=== PATIENT | female | born 1965 | race Two or more races ===

== ENCOUNTER 2023-06-05 14:52 | Outpatient (REF) | payer OTHER, SELFPAY ==
[2023-06-05 18:17] LABS: Vitamin B12 323 pg/mL (200-900)
[2023-06-10 13:18] LABS: Vitamin B6 7.9 ng/mL (2.1-21.7)
== END 2023-06-05 14:53 | disposition home or self-care (01) ==
LOC: HO.CHCLDS 14:52
PROVIDERS: Visit Provider Internal Medicine
DX: L29.9 Pruritus, unspecified (principal)
CPT/HCPCS: 36415; 82607; 84207

== ENCOUNTER → 2023-11-01 12:47 | Outpatient (BNVA) | payer OTHER, SELFPAY | PROVIDERS: Visit Provider Physician Assistant Medical | DX: M54.2 Cervicalgia (principal); S39.012A Strain of muscle, fascia and tendon of lower back, initial encounter; Y04.2XXA Assault by strike against or bumped into by another person, initial encounter | CPT/HCPCS: 72052; 99202 ==

== ENCOUNTER 2023-11-02 09:52 | Outpatient (REF) | payer OTHER, SELFPAY ==
[2023-11-02 15:43] LABS: Alanine Aminotransferase 11 U/L (0-31); Albumin Level 3.9 g/dL (3.5-5.0); Alkaline Phosphatase 92 U/L (39-117); Anion Gap 14 (12-20); Aspartate Amino Transferase 14 U/L (5-31); Bilirubin Direct 0.2 mg/dL (0.0-0.5); Bilirubin Total 0.5 mg/dL (0.0-1.0); Blood Urea Nitrogen 14 mg/dL (9-16); Calcium 8.9 mg/dL (8.4-10.2); Carbon Dioxide 26 mmol/L (22-29); Chloride 104 mmol/L (96-108); Cholesterol 165 mg/dL (<200); Estimated Glomerular Filt Rate > 60; Glucose Random 103 mg/dL (60-115); HDL Cholesterol 60 mg/dL (>40); LDL Cholesterol Calculated 90 mg/dL (<100); Sodium 140 mmol/L (135-145); Total Protein 7.4 g/dL (6.5-8.0); Triglycerides 77 mg/dL (<150)
[2023-11-02 15:47] LABS: Thyroid Stimulating Hormone 1.58 uIU/mL (0.32-4.0)
== END 2023-11-02 09:53 | disposition home or self-care (01) ==
LOC: HO.CHCLDS 09:52
PROVIDERS: Visit Provider Student in an Organized Health Care Education/Training Program
DX: E66.9 Obesity, unspecified (principal)
CPT/HCPCS: 36415; 80048; 80061; 80076; 84443

== ENCOUNTER → 2023-11-03 12:50 | Outpatient (BNVA) | payer OTHER, SELFPAY | PROVIDERS: Visit Provider Physician Assistant | DX: M54.2 Cervicalgia (principal); S39.012A Strain of muscle, fascia and tendon of lower back, initial encounter; Y04.2XXA Assault by strike against or bumped into by another person, initial encounter | CPT/HCPCS: 99213 ==

== ENCOUNTER → 2024-07-24 11:22 | Outpatient (BNVA) | payer OTHER, SELFPAY | PROVIDERS: PCP Student in an Organized Health Care Education/Training Program; Visit Provider Physician Assistant | DX: S80.211A Abrasion, right knee, initial encounter (principal); W01.0XXA Fall on same level from slipping, tripping and stumbling without subsequent striking against object, initial encounter | CPT/HCPCS: 73564; 99204 ==

== ENCOUNTER → 2024-07-29 15:04 | Outpatient (BNVA) | payer OTHER, SELFPAY | PROVIDERS: PCP Student in an Organized Health Care Education/Training Program; Visit Provider Physician Assistant Medical | DX: S80.211A Abrasion, right knee, initial encounter (principal); W01.0XXA Fall on same level from slipping, tripping and stumbling without subsequent striking against object, initial encounter | CPT/HCPCS: 99213 ==

== ENCOUNTER 2024-08-22 14:50 | Outpatient (AMB) | payer BC, SELFPAY ==
--- NOTE | 2024-08-22 15:03 | A.OFFVIS_ITS ---
Intake Visit Reasons: mixed/stress incontinence Intake Note: New Patient presents for initial visit for incontinence Urology Medications: oxybutynin Blood Thinner: none PVR: 51ml's Freelance Recruiter Required: No Accompanied by: Self / Same As Patient Allergies No Known Allergies Allergy (Verified 08/22/24 15:15) PFSH Surgical History Hx of hysterectomy Hx of gastric bypass Family History Family/Other Family history- stomach cancer Office Procedures Post Void Residual Post Residual Void Post Void Residual (PVR): 51 [id number] Void Residual by ultrasound Results AMB Urinalysis, Automated UA Leukoctes 15 Osei/uL Last Edit by [facility] on 08/22/24 15:17 UA Nitrite Last Edit by [facility] on 08/22/24 15:17 UA Urobilinogen 0.2 mg/dL Last Edit by [facility] on 08/22/24 15:17 UA Protein 0 mg/dL Last Edit by [facility] on 08/22/24 15:17 UA pH 6.0 Last Edit by [facility] on 08/22/24 15:17 UA Blood 0 Gordon/uL Last Edit by [facility] on 08/22/24 15:17 UA Specific [place] 1.030 Last Edit by [facility] on 08/22/24 15:17 UA Ketone Last Edit by [facility] on 08/22/24 15:17 UA Bilirubin 0 mg/dL Last Edit by [facility] on 08/22/24 15:17 UA Glucose 0 mg/dL Last Edit by [facility] on 08/22/24 15:17 Assessment & Plan Assessment & Plan Orders: Orders AMB Urinalysis Automated Today Z13.9 - Encounter for screening, unspecified AMB Post Void Residual by ultrasound Today N39.41 - Urge incontinence Coding CPT Codes Post Residual Void - PVR CPT Code: [id number] Void Residual by ultrasound ([id number])
== END 2024-08-22 15:26 | disposition home or self-care (01) ==
PROVIDERS: PCP Student in an Organized Health Care Education/Training Program; Visit Provider Nurse Practitioner Family
DX: Z13.9 Encounter for screening, unspecified (principal)

== ENCOUNTER → 2024-08-22 14:50 | Outpatient (BNVA) | payer BC, SELFPAY | PROVIDERS: PCP Student in an Organized Health Care Education/Training Program; Visit Provider Nurse Practitioner Family | DX: N39.46 Mixed incontinence (principal); N30.10 Interstitial cystitis (chronic) without hematuria; N32.81 Overactive bladder | CPT/HCPCS: 51798; 81003 ==

== ENCOUNTER 2024-11-06 15:32 | Outpatient (REF) | payer BC, SELFPAY ==
--- NOTE | ~2024-11-06 | US_ITS ---
EXAMINATION: US RETROPERITONEUM HISTORY: N39.46 - Mixed incontinence TECHNIQUE: Real-time grayscale ultrasound imaging of the kidneys was performed and images were reviewed. COMPARISON: There are no prior studies for comparison. FINDINGS: Right kidney: The right kidney measures 11.1 x 4.4 x 4.0 cm. Renal parenchymal echotexture and thickness are normal. There are no masses. There is no hydronephrosis or renal calculi. Left Kidney: The left kidney measures 11.9 x 5.3 x 5.3 cm. Renal parenchymal echotexture and thickness are normal. There are no masses. There is no hydronephrosis or renal calculi. The urinary bladder is unremarkable. Bilateral ureteral jets are identified. Before voiding, the urinary bladder measured 8.1 x 5.5 x 8.7 cm, for an estimated volume of 202 mL. After voiding, the urinary bladder measured 3.4 x 2.2 x 5.3 cm, for an estimated volume of 21 mL. US/US retroperitoneal comp IMPRESSION: Unremarkable renal ultrasound. Post void bladder residual of 21 mL. Electronically signed by: Helio Eagle MD 11/07/2024 07:00 AM EDT
--- OUTSIDE RECORDS SUMMARY | 2024-11-06 18:38 | XMS_ITS | Clinical Summary ---
Author Organization [employer] Address [address] [facility] [address]t [place] [address] Care Team Providers Care Pet Care Assistant Name Role Phone Karen Burden MD Primary Care Provider [phone] Allergies No known active allergies Medications famotidine (Pepcid) 20 MG tablet Take 20 mg by mouth. 02/15/2024 Active naproxen (Naprosyn) 500 MG tablet TAKE 1 TABLET BY MOUTH TWICE A DAY NEEDED BACK PAIN 11/01/2023 Active oxybutynin XL (Ditropan XL) 5 MG 24 hr tablet Take 1 tablet (5 mg) by mouth Once per day. Do not crush, chew, or split. 30 tablet 11 06/19/2024 5 Active PARoxetine (Paxil) 10 MG tablet Take 1 tablet (10 mg) by mouth in the morning. 30 tablet 11 06/19/2024 Active Active Problems Problem Noted Date Diagnosed Date Anemia 06/19/2024 Depression 06/19/2024 Epidermoid cyst 06/19/2024 Family history of neoplasm of breast 06/19/2024 GERD (gastroesophageal reflux disease) 4 Obesity 06/19/2024 Breast microcalcifications 11/02/2023 History of hysterectomy for benign disease 05/15 Immunizations Name Administration Dates Next Due INFLUENZA VACCINE QUADRIVALE NT RECOMBINANT PRESERVATIVE FREE RIV4 09/08/2020 Influenza injectable quadriv alent preservative free 07/12/2023,05/13/2022,06/25/2018 Influenza, seasonal, injecta ble, preservative free 06/19/2024,05/20/2016 Pfizer Covid-19 Vaccine 12+ 06/19/2024 Pneumococcal Polysaccharide PPSV23 01/20/2018 Tdap 01/09/2018 Zoster, Recombinant 05/23/2023 Social History Tobacco Use Types Packs/Day Years Used Date Smoking Tobacco: Never Passive Smoke Exposure: Never Smokeless Tobacco: Never Tobacco Cessation:Counseling Given: Not Answered Alcohol Use Standard Drinks/Week Comments Never 0 (1 standard drink = 0.6 oz pur e alcohol) Depression Answer Date Recorded Patient Health Questionnaire-9 Score 12 06/19/2024 Patient Health Questionnaire-9 Score 12 06/19/2024 Last PHQ-9: Questionnaire Data Not on file 1 08/19/2023 Housing Stability Answer Date Recorded What is your housing situation today? I have alex ram 06/05/[address] you li ve. Do you have problems with any of the following? None of the above 06/05/2023 Food Insecurity Answer Date Recorded Within the past 12 months, y ou worried that your food would run out before you got money to buy more: Never True 06/05/2023 Within the past 12 months,th e food you bought just didn't last and you didn't have enough money to get more: Never True Transportation Answer Date Recorded In the past 12 months, has l ack of transportation kept you from medical appts, meetings, work or from getting things needed for daily living? No 06/05/2023 Utilities Answer Date Recorded In the past 12 months, has t he electric, gas, oil or water company threatened to shut off services in your home? No 06/05/2023 Depression Answer Date Recorded Patient Health Questionnaire-2 Score 3 06/19/2024 Comments No Sex and Gender Information Value Date Recorded Sex Assigned at Female 06/13/2022 10:27 AM EDT Legal Sex Female 10:27 AM EDT Gender Identity Female 06/13/2022 10:27 AM EDT Sexual Orientation Straight 02/01/2023 11 :32 AM EDT Last Filed Vital Signs Vital Sign Reading Time Taken Comments Blood Pressure 119/66 06/19/2024 8:44 AM EST Pulse 82 06/19/2024 8:44 AM EST Temperature 36.3 ??C (97.3 ??F) 06/19/2024 8:44 AM ES T Respiratory Rate 14 06/19/2024 8:44 AM EST Oxygen Saturation 97% 06/19/2024 8:44 AM EST Inhaled Oxygen Concentration - - Weight 88 kg (194 lb) 06/19/2024 8:44 AM EST Height 159 cm (5' 2.6 ) 06/19/2024 8:44 AM EST Body Mass Index 34.81 06/19/2024 8:44 AM EST Plan of Treatment Health Maintenance Due Date Last Done Comments CT Colonography 1966 Colonoscopy 1966 FIT 1966 FOBT 1965 HIV Screening 1965 Sigmoidoscopy 1966 Alcohol/Substance Use Screening 1978 Hepatitis C Screening 1984 Hepatitis B Vaccines (1 of 3 - 19+ 3-dose series) 1985 Mammogram 2006 Pneumococcal Vaccine: 50+ Years (2 of 2 - PCV) 01/20/2019 01/20/2018 Zoster Vaccines (2 of 2) 07/18/2023 05/23/2023 SDOH Screening 10/24/2024 10/25/2023 Tobacco Screening 11/01/2024 11/02/2023 Depression Monitoring (PHQ-9) 12/17/2024 06/19/2024, 06/19/2024 Depression Screening 06/19/2025 06/19/2024, 06/19/20 24 Colorectal Cancer Screening 11/19/2026 FIT DNA/Cologuard 11/19/2026 11/20/2023 DTaP/Tdap/Td Vaccines (2 - Td or Tdap) 01/10/2028 01/09/2018 Lipid Panel 11/01/2028 11/02/2023, 02/13/2023 RSV Patients and Patients Aged 60 years or older (1 - 1-dose 75+ series) 2041 COVID-19 Vaccine Completed 06/19/2024, 05/2023, 07/18/2021, Additional history exists Influenza Vaccine Completed 06/19/2024, , 05/13/2022, Additional history exists HIB Vaccines Aged Out No longer eligi ble based on patient's age to complete this topic HPV Vaccines Aged Out No longer eligi ble based on patient's age to complete this topic Hepatitis A Vaccines Aged Out No long er eligible based on patient's age to complete this topic IPV Vaccines Aged Out No longer eligi ble based on patient's age to complete this topic Meningococcal Vaccine Aged Out No juan billy eligible based on patient's age to complete this topic RSV under 20 months Aged Out No longe r eligible based on patient's age to complete this topic Rotavirus Vaccines Aged Out No longer eligible based on patient's age to complete this topic Procedures Procedure Name Priority Date/Time Associated Diagnosis Comments LAB COLOGUARD?? COLON CANCER SCREEN Routine 11/20/2023 3:06 PM EDT Encounter for screening for malignant neoplasm of colon LIPID PANEL, STANDARD Routine 11/02/2023 9:53 AM EDT Obesity (BMI 35.0-39.9 without comorbidity) from Last 3 Months or Most Recently Relevant to Health Maintenance Results * Cologuard?? colon cancer screening (11/20/2023 3:06 PM EDT) Cologuard Result Negative Negative 11/24/19 7:05 PM EDT [facility] (CLIA #:[id number]) Comment: NEGATIVE TEST RESULT. A negative Cologuard result indicates a low likelihood that a colorectal cancer (CRC) or advanced adenoma (adenomatous polyps with more advanced pre-malignant features) ??is present. The chance that a person with a negative Cologuard test has a colorectal cancer is less than 1 in 1500 (negative predictive value >99.9%) or has an ??advanced adenoma is less than ??5.3% (negative predictive value 94.7%). These data are based on a prospective cross-sectional study of 10,000 individuals at average risk for colorectal cancer who were screened with both Cologuard and colonoscopy. (Eun Walker al, N Engl J Med 2014;370(14):1286- 1297) The normal value (reference range) for this assay is negative. COLOGUARD RE-SCREENING RECOMMENDATION: Periodic colorectal cancer screening is an important part of preventive healthcare for asymptomatic individuals at average risk for colorectal cancer. ??Following a negative Cologuard result, the [place] Cancer Society and U.S. Multi-Society Task Force screening guidelines recommend a Cologuard re-screening interval of 3 years. References: [place] [employer] Guideline for Colorectal Cancer Screening: https://www.cancer.org/cancer/zxzpe-vpydjy-ryxyyt/iskfgdwii-dgbikdpao-nrarxad/ac s-rec ommendations.html.; Bruno MARADIAGA, Kiana FELDER, Pretty VILLANUEVA, Colorectal Cancer Screening: Recommendations for Physicians and Patients from the U.S. Multi-Society Task Force on Colorectal Cancer Screening , Am J Gastroenterology 2017; 112:9014-0772. TEST DESCRIPTION: Composite algorithmic analysis of stool DNA-biomarkers with hemoglobin immunoassay. ?? Quantitative values of individual biomarkers are not reportable and are not associated with individual biomarker result reference ranges. Cologuard is intended for colorectal cancer screening of adults of either sex, 45 years or older, who are at average-risk for colorectal cancer (CRC). Cologuard has been approved for use by the U.S. FDA. The performance of Cologuard was established in a cross sectional study of average-risk adults aged 50-84. Cologuard performance in patients ages 45 to 49 years was estimated by sub-group analysis of near-age groups. Colonoscopies performed for a positive result may find as the most clinically significant lesion: colorectal cancer [4.0%], advanced adenoma (including sessile serrated polyps greater than or equal to 1cm diameter) [20%] or non- advanced adenoma [31%]; or no colorectal neoplasia [45%]. These estimates are derived from a prospective cross-sectional screening study of 10,000 individuals at average risk for colorectal cancer who were screened with both Cologuard and colonoscopy. (Eun Walker al, N Engl J Med 2014;370(14):2234-0824.) Cologuard may produce a false negative or false positive result (no colorectal cancer or precancerous polyp present at colonoscopy follow up). A negative Cologuard test result does not guarantee the absence of CRC or advanced adenoma (pre-cancer). The current Cologuard screening interval is every 3 years. ([place] [employer] and U.S. Multi-Society Task Force). Cologuard performance data in a 10,000 patient pivotal study using colonoscopy as the reference method can be accessed at the following location: www.exactlabs.com/results. Additional description of the Cologuard test process, warnings and precautions can be found at www.[employer].com. Stool specimen (specimen) 11/20/2023 3:06 PM EDT 11/21/2023 2:44 PM EDT Karen Burden MD LAB MOLECULAR DIAGNOSTICS ORDERA BLES Final Result Performing Organization Address [facility]/ZIP Co de Phone Number [facility] (CLIA #:[id number]) [place] [address], [place] [phone] * Lipid Panel, Standard (11/02/2023 9:53 AM EDT) Triglycerides 77 <150 mg/dL [facility] Comment:Desirable Triglyceri de: less than 150 mg/dLBorderline High Triglyceride 150-199 mg/dLHigh Triglyceride: 200-499 mg/dLVery High Triglyceride: greater than or equal to 5OO mg/dL Cholesterol 165 <200 mg/dL [facility] Comment:Desirable Cholestero l: less than 200 mg/dLBorderline High Cholesterol: 200-239 mg/dLHigh Cholesterol: greater than 239 mg/dL LDL Cholesterol Calculated 90 <100 mg/dL [facility] Comment:Desirable LDL: less than 100 mg/dLNear Optimal/Above Optimal LDL: 110- 129 mg/dLBorderline High LDL: 130-159 mg/dLHigh LDL: 160-189 mg/dLVery High LDL: greater than or equal to 190 mg/dL HDL Cholesterol 60 >40 mg/dL [facility] Comment:Desirable HDL: great er than 40 mg/dL Note: This HDL assay may give artificially low results in patients with liver disease. Blood Venous blood specimen / Unknown 11/02/2023 9:53 AM EDT 11/02/2023 2:45 PM EDT Karen Burden MD LAB BLOOD ORDERABLES Final Resul t Performing Organization Address [facility]/ZIP Co de Phone Number [facility] [address] [place] [phone] from Last 3 Months or Most Recently Relevant to Health Maintenance Insurance [facility] HMO Care Teams Pet Care Assistant Relationship Specialty Start Date End Date Karen Burden MD [address] [place] [phone] PCP - General Family Medicine 01/16/20
--- OUTSIDE RECORDS SUMMARY | 2024-11-06 18:38 | XMS_ITS | Encounter Summary ---
Author Organization [employer] Address [address] 7[address] [place] [address] Care Team Providers Care Bookstore Manager Name Role Phone Karen Burden MD Primary Care Provider [phone] Encounter Details Date Type Department Care Team ([facility] st Contact Info) Description 06/13/2023 Orders Only [facility] [address] [place], [place] [phone] Catherine Centeno MD [address] [place] [address] Tongue irritation (Primary Dx) Social History Tobacco Use Types Packs/Day Years Used Date Smoking Tobacco: Never Passive Smoke Exposure: Never Smokeless Tobacco: Never Alcohol Use Standard Drinks/Week Comments Never 0 (1 standard drink = 0.6 oz pur e alcohol) Depression Answer Date Recorded Patient Health Questionnaire-9 Score 4 02/01/2023 Housing Stability Answer Date Recorded What is [...] Date Recorded Patient Health Questionnaire-2 Score 3 02/01/2023 Comments Unknown Sex and Gender Information Value Date Recorded Sex Assigned at Female 06/13/2022 10:27 AM EDT Legal Sex Female 10:27 AM EDT Gender Identity Female 06/13/2022 10:27 AM EDT Sexual Orientation Straight 02/01/2023 11 :32 AM EDT documented as of this encounter Plan of Treatment Not on file documented as of this encounter Visit Diagnoses Diagnosis Tongue irritation- Primary documented in this encounter Additional Health Concerns Assessment Noted Time PHQ-9 Depression Total Score: 4 02/02/20 23 11:44 AM EDT documented as of this encounter Care Teams Bookstore Manager Relationship Specialty Start Date End Date Karen Burden MD [address] [place] [address] PCP - General Family Medicine 01/16/20 documented as of this encounter
--- OUTSIDE RECORDS SUMMARY | 2024-11-06 18:38 | XMS_ITS | Encounter Summary ---
Author Organization [employer] [facility] Address [address] [place] [address] [address] [place] [address] Care Team Providers Care Shell Maker Lockstitch Name Role Phone Karen Burden MD Primary Care Provider [phone] Reason for Visit * Reason Comments Med Refill Encounter Details Date Type Department Care Team ([facility] Contact Info) Description 11/25/[address] [facility] [address] [place], [place] [phone] Karen Burden MD [address] [place] [address] Social History Tobacco Use Types Packs/Day Years Used Date Smoking Tobacco: Never Assessed Comments Unknown Sex and Gender Information Value Date Recorded Sex Assigned at Female 06/13/2022 10:27 AM EDT Legal Sex Female 10:27 AM EDT Gender Identity Female 06/13/2022 10:27 AM EDT Sexual Orientation Straight 02/01/2023 11 :32 AM EDT documented as of this encounter Plan of Treatment Not on file documented as of this encounter Visit Diagnoses Not on filedocumented in this encounter Care Teams Shell Maker Lockstitch Relationship Specialty Start Date End Date Karen Burden MD [address] [place] [phone] PCP - General Family Medicine 01/16/20 documented as of this encounter
--- OUTSIDE RECORDS SUMMARY | 2024-11-06 18:38 | XMS_ITS | Encounter Summary ---
Author Organization [employer] Address [address] [facility] 7t [place] [address] Care Team Providers Care Palliative Senior Np Name Role Phone Karen Burden MD Primary Care Provider [phone] Encounter Details Date Type Department Care Team (Late st Contact Info) Description 02/13/2023 Orders Only [facility] PEDS [address] [place], [place] [phone] Karen Burden MD [address] [place] [address] Social History Tobacco Use Types Packs/Day Years Used Date Smoking Tobacco: Never Smokeless Tobacco: Never Alcohol Use Standard Drinks/Week Comments Never 0 (1 standard drink = 0.6 oz pur e alcohol) Depression Answer Date Recorded Patient Health Questionnaire-9 Score 4 02/01/2023 Depression Answer Date Recorded Patient Health Questionnaire-2 Score 3 02/01/2023 Comments Unknown Sex and Gender Information Value Date Recorded Sex Assigned at Female 06/13/2022 10:27 AM EDT Legal Sex Female 10:27 AM EDT Gender Identity Female 06/13/2022 10:27 AM EDT Sexual Orientation Straight 02/01/2023 11 :32 AM EDT COVID-19 Exposure Response Date Recorded In the last 10 days, have yo u been in contact with someone who was confirmed or suspected to have Coronavirus/COVID-19? No / Unsure 02/01/2023 11:17 AM EDT documented as of this encounter Plan of Treatment Not on file documented as of this encounter Visit Diagnoses Not on filedocumented in this encounter Additional Health Concerns Assessment Noted Time PHQ-9 Depression Total Score: 4 02/02/20 23 11:44 AM EDT documented as of this encounter Care Teams Palliative Senior Np Relationship Specialty Start Date End Date Karen Burden MD [address] [place] [phone] PCP - General Family Medicine 01/16/20 documented as of this encounter
--- OUTSIDE RECORDS SUMMARY | 2024-11-06 18:38 | XMS_ITS | Clinical Summary ---
Author Organization [facility] it Address [address] [place] [address] Care Team Providers Care Machine Strap Buckler Name Role Phone Livier Lombardo MD Primary Care Provider [phone] Social History Tobacco Use Types Packs/Day Years Used Date Smoking Tobacco: Never Assessed Comments Unknown Sex and Gender Information Value Date Recorded Sex Assigned at Not on file Legal Sex Female 5:36 PM EST Gender Identity Not on file Sexual Orientation Not on file Last Filed Vital Signs Vital Sign Reading Time Taken Comments Blood Pressure 124/76 10/27/2021 10:29 AM EDT L Arm Pulse 71 10/27/2021 10:29 AM EDT Temperature - - Respiratory Rate - - Oxygen Saturation - - Inhaled Oxygen Concentration - - Weight 92.2 kg (203 lb 4.8 oz) 10/27/2021 10:29 AM EDT Height - - Body Mass Index - - Plan of Treatment Health Maintenance Due Date Last Done Comments DTaP,Tdap,and Td Vaccines (1 - Tdap) 1985 Hepatitis B Vaccines (1 of 3 - 19+ 3-dose series) 1985 Cervical Cancer Screening: Pap Smear 1987 Pneumococcal Vaccine: 50+ Years (1 of 1 - PCV) 2016 Zoster Vaccines (1 of 2) 2016 Colorectal Cancer Screening: Colonoscopy 07/24/2022 Depression Screening 07/24/2022 HIV Screening 07/24/2022 Hepatitis C Screening 07/24/2022 Social Influencers of Health Screening 07/24/2022 COVID-19 Vaccine (1 - season) 2024 Influenza Vaccine (#1) 2024 Breast Cancer Screening 04/04/2026 04/04/20 24, 02/10/2023, 08/04/2021, Additional history exists HIB Vaccines Aged Out [...] on patient's age to complete this topic MMR Vaccines Aged Out No longer eligi ble based on patient's age to complete this topic Meningococcal ACWY Vaccine Aged Out N o longer eligible based on patient's age to complete this topic Meningococcal B Vacine Aged Out No lo nger eligible based on patient's age to complete this topic Pneumococcal Vaccine: Pediatrics (0 to 5 Years) and At-Risk Patients (6 to 64 Years) Aged Out No longer eligible based on patient's age to complete this topic RSV Immunization Patients Under 20 months Aged Out No longer eligible based on patient's age to complete this topic Varicella Vaccines Aged Out No longer eligible based on patient's age to complete this topic Procedures Procedure Name Priority Date/Time Associated Diagnosis Comments [facility] SCREENING DIGITAL Routine 04/04/2024 3:55 PM EDT Encounter for screening mammogram for malignant neoplasm of breast from Last 3 Months or Most Recently Relevant to Health Maintenance Results * [facility] S[facility] (04/04/2024 3:55 PM EDT) Anatomical Region Laterality Modality Mammography 04/04/2024 3:19 PM EDT Narrative 04/04/2024 3:[address] [facility] Diagnostic Imaging Department [address] [place], [place] [id number] Patient: ??YOLANDA CARPENTER ?/Age/Sex: 1965 - 58 - F Unit#: ??[id number] ? Location/Status: ??SPDIMAM/REG CLI ? Mnemonic/Ordering Site: ??DIGSC/SPMAM Ordering Physician: ??ALEXANDER BURDEN MD [facility] Screening Digital - 04/04/24 - 1532 Report Status:Signed EXAM: [facility] Screening Digital EXAM DATE AND TIME: 04/04/2024 3:32 PM HISTORY: ??Screening. Right breast biopsy in 2022, pathology benign. COMPARISON: ??03/09/23, 03/02/23, 02/10/23, 08/03/21, 08/01/20 TECHNIQUE: Bilateral digital breast tomosynthesis was performed in the CC and MLO projections. Computer aided detection with [employer] 3D 3.1 was emp loyed. TISSUE DENSITY: b. There are scattered areas of fibroglandular density. FINDINGS: A biopsy marker is again seen in the posterolateral right breast. Residual microcalcifications are without significant change. No suspicious masses, grouped microcalcifications, or areas of architectural distortion are seen. The skin and vascularity are unremarkable. IMPRESSION: Stable mammographic appearance of the breasts. ??No evidence of malignancy is seen. A negative mammogram in the presence of a clinically suspicious palpable abnormality does not preclude the possibility of malignancy or alter the indications for biopsy. BI-RADS: ??Category 2: Benign RECOMMENDATION(S): 1: Routine screening mammogram BILATERAL in 1 year. Dictating Physician: ??ASHLY FRENCH MD Electronically Signed by: ??ASHLY FRENCH MD Dic Date/Time: ??04/04/24 7482 Sign date/Time: ??04/04/24 1551 Procedure Note Ashly French MD - 05/29/2024 [facility] Diagnostic Imaging Department [address] [place], [place] [id number] Patient: YOLANDA CARPENTER /Age/Sex: 1965 - 58 - F Unit#: [id number] Location/Status: SPDIMAM/REG CLI Mnemonic/Ordering Site: [facility] Ordering Physician: ALEXANDER BURDEN MD [facility] Screening Digital - 04/04/24 - 1532 Report Status:Signed EXAM: [facility] Screening Digital EXAM DATE AND TIME: 04/04/2024 3:32 PM HISTORY: Screening. Right breast biopsy in 2022, pathology benign. COMPARISON: 03/09/23, 03/02/23, 02/10/23, 08/03/21, 08/01/20 TECHNIQUE: Bilateral digital breast tomosynthesis was performed in the CCand MLO projections. Computer aided detection with [employer]eez[employer]mobi 3D 3.1 wasemp loyed. TISSUE DENSITY: b. There are scattered areas of fibroglandular density. FINDINGS: A biopsy marker is again seen in the posterolateral right breast.Residual microcalcifications are without significant change. No suspicious masses, grouped microcalcifications, or areas ofarchitectural distortion are seen. The skin and vascularity are unremarkable. IMPRESSION: Stable mammographic appearance of the breasts. No evidence of malignancyis seen. A negative mammogram in the presence of a clinically suspicious palpable abnormality does not preclude the possibility of malignancy or alter the indications for biopsy. BI-RADS: Category 2: Benign RECOMMENDATION(S): 1: Routine screening mammogram BILATERAL in 1 year. Dictating Physician: ASHLY FRENCH MD Electronically Signed by: ASHLY FRENCH MD Dic Date/Time: 04/04/24 1554 Sign date/Time: 04/04/24 1555 Alexander Burden MD IMG BI PROCEDURES Final Result from Last 3 Months or Most Recently Relevant to Health Maintenance Care Teams Machine Strap Buckler Relationship Specialty Start Date End Date Livier Lombardo MD [address] [place] [address] PCP - General 07/29/21
== END 2024-11-06 15:33 | disposition home or self-care (01) ==
LOC: HO.US 15:32
PROVIDERS: PCP Student in an Organized Health Care Education/Training Program; Visit Provider Nurse Practitioner Family
DX: N39.46 Mixed incontinence (principal)
CPT/HCPCS: 76770

== ENCOUNTER → 2024-11-06 15:35 | Outpatient (BNV) | payer BC, SELFPAY | PROVIDERS: PCP Student in an Organized Health Care Education/Training Program; Visit Provider Radiology Diagnostic Radiology | DX: N39.46 Mixed incontinence (principal) | CPT/HCPCS: 76770 ==

== ENCOUNTER 2024-12-16 15:28 | Outpatient (AMB) | payer BC, SELFPAY ==
--- NOTE | 2024-12-16 15:38 | MHC.OFFVIS ---
Intake Visit Reasons: 3 month follow up/ US(set) Intake Note: Patient presents for a 3 month follow up/US Urology Medications: oxybutynin Blood Thinner: none PVR: 23ml Assistant To The President Required: No Accompanied by: Self / Same As Patient Allergies No Known Allergies Allergy (Verified 08/25/24 17:02) Medication List - Last Reconciled 12/16/24 by NOLA Cronin- paroxetine HCl 10 mg PO DAILY HPI Comments Details: Chantale is a very pleasant 59-year-old female patient of Dr. Burden. She has a past medical history of depression and mixed urinary incontinence. She presents to the office today for follow-up of her mixed urinary incontinence. Recent renal imaging results were reviewed with the patient today. 11/05 bilateral kidneys are normal in size and echotexture. There are no renal masses, hydronephrosis, renal calculi noted. The urinary bladder is unremarkable. Bladder jets are demonstrated. Pre void bladder volume is approximately 200 mL. Postvoid bladder volume is approximately 20 mL. She reports feeling symptoms of mixed urinary incontinence improved for approximately 2 weeks with initiation of Myrbetriq however shortly after felt symptoms returned. She has previously trialed oxybutynin with minimal improvement. She continues to utilize 2-3 Cecile pads per day. She reports urinary urgency and frequency with episodes of incontinence if not near a bathroom as well as episodes of incontinence with coughing, sneezing, and or exercising. She otherwise denies hematuria, dysuria, foul smelling urine, changes to urinary stream, flank pain, fever, and or chills. Unable to obtain urine for urinalysis as patient unable to void however PVR 23ml's. We discussed at length potential causes of lower urinary tract symptoms patient is experiencing as well as further treatment options and risks and benefits of these treatment options. She otherwise offers no other issues or concerns at this time. PFSH Surgical History Hx of hysterectomy Hx of gastric bypass Family History Family/Other Family history- stomach cancer Review of Systems Const All systems reviewed & are unremarkable except as noted in HPI and below Physical Exam Const General: cooperative, healthy appearing, comfortable, no acute distress, well developed, alert and awake Orientation/consciousness: patient oriented x3 Limitations: no limitations HEENT Head: Yes normal to inspection, Yes normocephalic and Yes atraumatic Ears: hearing grossly normal bilaterally Eyes General: appearance normal, both eyes and all related structures Neck Neck: Yes normal visual inspection and Yes trachea midline Chest Chest palpation & inspection: normal inspection of the chest Resp Effort & Inspection: normal respiratory effort and able to speak in complete sentences Cardio Rate: regular rate GI Inspection: Yes normal to inspection General: Yes no CVA tenderness Back/Spine/Pelvis Back: no CVA tenderness Skin General skin exam: no rashes or lesions noted Neuro General: patient oriented x3 Extrem General: Yes normal to inspection Psych Appearance: grossly normal and well kempt Mental Status: mental status grossly normal Speech and movement: Normal speech and movement present and Clear speech present Affect: normal affect Attitude: cooperative Thought process: Normal thought process present Thought content: Normal thought content present Insight: Fair insight present (Psych) Judgement: Fair judgement present (Psych) Office Procedures Post Void Residual Post Residual Void Post Void Residual (PVR): 23 07935-Voke Void Residual by ultrasound Results Reviewed Results Reviewed: Date of Service: 11/06/24 Procedure(s): US retroperitoneal comp FINDINGS: Right kidney: The right kidney measures 11.1 x 4.4 x 4.0 cm. Renal parenchymal echotexture and thickness are normal. There are no masses. There is no hydronephrosis or renal calculi. Left Kidney: The left kidney measures 11.9 x 5.3 x 5.3 cm. Renal parenchymal echotexture and thickness are normal. There are no masses. There is no hydronephrosis or renal calculi. The urinary bladder is unremarkable. Bilateral ureteral jets are identified. Before voiding, the urinary bladder measured 8.1 x 5.5 x 8.7 cm, for an estimated volume of 202 mL. After voiding, the urinary bladder measured 3.4 x 2.2 x 5.3 cm, for an estimated volume of 21 mL. IMPRESSION: Unremarkable renal ultrasound. Post void bladder residual of 21 mL. Assessment & Plan Assessment & Plan (1) Mixed stress and urge urinary incontinence: Code(s): N39.46 - Mixed incontinence Category: Medical Plan Unable to obtain urine for urinalysis as patient unable to void however PVR 23 mL. Recent retroperitoneal ultrasound results reviewed with the patient today. We discussed further treatment options and risks and benefits of these treatment options. She does not wish to continue trialing medication therapy. She also does not wish to undergo pelvic floor therapy. Will schedule for in office urodynamics for further assessment evaluation. Follow-up per doctor's orders; or sooner with any issues, concerns, and or questions. Orders: Orders US jorge comp 11/06/24 N39.46 - Mixed incontinence AMB Post Void Residual by ultrasound Today N39.46 - Mixed incontinence AMB Urinalysis Automated Today Z13.9 - Encounter for screening, unspecified Patient Instructions: The patient had an opportunity to ask questions regarding the treatment plan. All questions were answered. Physical exam, labs, and imaging were discussed and reviewed in detail. As well as risks, benefits, and discussion of treatment choices. No major barriers to understanding were identified. The patient expressed understanding and agreement with the above treatment plan. The patient was made aware they should contact our office by phone for worsening of their current condition, the appearance of new symptoms, or with any questions or concerns. Compliance is encouraged with any medications and follow up testing that is ordered. It is a privilege to be allowed the opportunity to participate in? your urological care.? Again, if you have any questions or concerns If you have any questions or concerns please do not hesitate to contact me. The office is [phone]. This note is constructed using voice recognition software. While every effort has been made to ensure accuracy television equipment operator errors may have been included. Yours sincerely, MINO Cronin Coding Level of Care Code Est Pt Level 3 (78530) Diagnoses Mixed stress and urge urinary incontinence N39.46 CPT Codes Post Residual Void - PVR CPT Code: 68261-Dhkk Void Residual by ultrasound ([id number])
--- OUTSIDE RECORDS SUMMARY | 2024-12-16 17:04 | XMS_ITS | Clinical Summary ---
Author Organization [facility] it Address [address] [place] [address] Care Team Providers Care Tankage Grinder Operator Name Role Phone Livier Lombardo MD Primary Care Provider [phone] Social History Tobacco Use Types Packs/Day Years [...] Influencers of Health Screening 07/24/2022 COVID-19 Vaccine ( - season) 2024 Influenza Vaccine (Season Ended) 2025 Breast Cancer Screening 04/04/2026 04/04/20 24, 02/10/2023, [...] age to complete this topic Meningococcal B Vaccine Aged Out No l onger eligible based on patient's age to complete [...] Procedure Name Priority Date/Time Associated Diagnosis Comments [facility] SCREENING DIGITAL Routine 04/04/2024 3:55 PM EDT Encounter for screening mammogram for malignant neoplasm of breast from Last 3 Months or Most Recently Relevant to Health Maintenance Results * [facility] SCREENING DIGITAL (04/04/2024 3:55 PM EDT) Anatomical Region Laterality Modality Mammography 04/04/2024 3:19 PM EDT Narrative 04/04/2024 3:55 PM EDT Diagnostic Imaging Department [address] [place] [address] Patient: ??YOLANDA CARPENTER ?/Age/Sex: 1965 - 58 - F Unit#: ??[id number] ? Location/Status: ??SPDIMAM/REG CLI ? Mnemonic/Ordering Site: ??DIGSC/SPMAM Ordering Physician: ??ALEXANDER BURDEN MD [facility] Screening Digital - 04/04/24 - 1532 Report Status:Signed EXAM: [facility] Screening Digital EXAM DATE AND TIME: 04/04/2024 3:32 PM HISTORY: ??Screening. Right breast biopsy in 2022, pathology benign. COMPARISON: ??03/09/23, 03/02/23, 02/10/23, 08/03/21, 08/01/20 TECHNIQUE: Bilateral digital breast tomosynthesis was performed in the CC and MLO projections. Computer aided detection with Art Circle 3D 3.1 was emp loyed. TISSUE DENSITY: [...] by: ??ASHLY FRENCH MD Dic Date/Time: ??04/04/24 9856 Sign date/Time: ??04/04/24 155 Procedure Note Ashly French MD - 05/29/2024 Diagnostic Imaging Department [address] [place], [place] [id number] Patient: YOLANDA CARPENTER /Age/Sex: 1965 - 58 - F Unit#: [id number] Location/Status: SPDIMA/REG CLI Mnemonic/Ordering Site: [facility] Ordering Physician: ALEXANDER BURDEN MD [facility] Screening Digital - 04/04/24 - 1532 Report Status:Signed EXAM: [facility] Screening Digital EXAM DATE AND TIME: 04/04/2024 3:32 PM HISTORY: Screening. Right breast biopsy in 2022, pathology benign. COMPARISON: 03/09/23, 03/02/23, 02/10/23, 08/03/21, 08/01/20 TECHNIQUE: Bilateral digital breast tomosynthesis was performed in the CCand MLO projections. Computer aided detection with Art Circle 3D 3.1 wasemp loyed. TISSUE DENSITY: b. [...] Recently Relevant to Health Maintenance Care Teams Tankage Grinder Operator Relationship Specialty Start Date End Date Livier Lombardo MD [address] [place] [address] PCP - General 07/29/21
--- OUTSIDE RECORDS SUMMARY | 2024-12-16 17:04 | XMS_ITS | Encounter Summary ---
Author Organization [employer] Address [address] [place] [address] Care Team Providers Care Photographs Curator Name Role Phone Karen Burden MD Primary Care Provider [phone] Encounter Details Date Type Department Care Team ([facility] st Contact Info) Description 06/13/2023 Orders Only [facility] CHC MED & PEDS [address] [place], [place] [phone] Catherine Centeno MD [address] [place] [address] Tongue irritation (Primary Dx) Social History Tobacco [...] documented as of this encounter Care Teams Photographs Curator Relationship Specialty Start Date End Date Karen Burden MD [address] [place] [address] PCP - General Family Medicine 01/16/20 documented as of this encounter
--- OUTSIDE RECORDS SUMMARY | 2024-12-16 17:04 | XMS_ITS | Encounter Summary ---
Author Organization [employer] Address [address] [place] [address] Care Team Providers Care Steam Press Tender Name Role Phone Karen Burden MD Primary Care Provider [phone] Encounter Details Date Type Department Care Team (Late st Contact Info) Description 02/13/2023 Orders Only [facility] CHC MED & PEDS [address] [place], [place] [phone] Karen Burden MD [address] [place] [address] Social History Tobacco Use Types Packs/Day Years [...] documented as of this encounter Care Teams Steam Press Tender Relationship Specialty Start Date End Date Karen Burden MD [address] [place] [phone] PCP - General Family Medicine 01/16/20 documented as of this encounter
--- OUTSIDE RECORDS SUMMARY | 2024-12-16 17:04 | XMS_ITS | Encounter Summary ---
Author Organization [employer] [facility] Address [address] [place] [address] [address] [place] [address] Care Team Providers Care Ships Equipment Engineer Name Role Phone Karen Burden MD Primary Care Provider [phone] Reason for Referral * Consultation (Routine) - Authorized Specialty Diagnoses / Procedures Referred By Contdilcia t Referred To Contact Nutrition Diagnoses Class 2 obesity without serious comorbidity with body mass index (BMI) of 39.0 to 39.9 in adult, unspecified obesity type Karen Burden MD [address] [place] [address] Phone: tel: fax: Referral ID Status Reason Start Date Expiration Date Visits Requested Visits Authorized [id number] Authorized Consult and Treat 12/16/2024 12/16/2025 1 1 Encounter Details Date Type Department Care Team (Late st Contact Info) Description 12/16/2024 11:15 AM EDT Office Visit [facility] CHC MED & PEDS [address] [place] [address] Karen Burden MD [address] [place] [address] Other iron deficiency anemia (Primary Dx); Dietary counseling; Exercise counseling; Urinary incontinence, unspecified type; Class 2 obesity without serious comorbidity with body mass index (BMI) of 39.0 to 39.9 in adult, unspecified obesity type; Encounter for annual wellness visit; Encounter for immunization Social History Tobacco Use Types Packs/Day Years [...] housing situation today? I have alex ram 12/16/[address] you li ve. Do you have problems with any of the following? None of the above 12/16/2024 Food Insecurity Answer Date Recorded Within the past 12 months, y ou worried that your food would run out before you got money to buy more: Never True 12/16/2024 Within the past 12 months,th e food you bought just didn't last and you didn't have enough money to get more: Never True 12/2024 Transportation Answer Date Recorded In the past 12 months, has l ack of transportation kept you from medical appts, meetings, work or from getting things needed for daily living? No 12/16/2024 Utilities Answer Date Recorded In the past 12 months, has t he electric, gas, oil or water company threatened to shut off services in your home? No 12/16/2024 Depression Answer Date Recorded Patient Health Questionnaire-2 Score 3 06/19/2024 Internet Access Answer Date Recorded Internet Access Q1 No 12/16/2024 Internet Access Q2 I do not want or need it 12/2024 Comments No Sex and Gender Information Value Date Recorded Sex Assigned at Female 06/13/2022 10:27 AM EDT Legal Sex Female 10:27 AM EDT Gender Identity Female 06/13/2022 10:27 AM EDT Sexual Orientation Straight 02/01/2023 11 :32 AM EDT documented as of this encounter Last Filed Vital Signs Vital Sign Reading Time Taken Comments Blood Pressure 132/83 12/16/2024 11:04 AM EDT Pulse 75 12/16/2024 11:04 AM EDT Temperature 36.7 ??C (98.1 ??F) 12/16/2024 11:04 AM E DT Respiratory Rate 18 12/16/2024 11:04 AM EDT Oxygen Saturation - - Inhaled Oxygen Concentration - - Weight 88.9 kg (196 lb) 12/16/2024 11:04 AM EDT Height 157.5 cm (5' 2 ) 12/16/2024 11:04 AM EDT Body Mass Index 35.85 12/16/2024 11:04 AM EDT documented in this encounter Progress Notes * Karen Burden MD - 12/16/2024 11:15 AM EDT Subjective Patient ID: Chantale Dove is a 59 y.o. female who presents for No chief complaint on file.. Depression Visit Type: follow-up Patient is not experiencing: anhedonia, chest pain, compulsions, confusion, decreased concentration, depressed mood, dizziness, palpitations and shortness of breath. Frequency of symptoms: rarely Review of Systems Constitutional: Negative. Respiratory: Negative. Negative for shortness of breath. Cardiovascular: Negative for chest pain and palpitations. Gastrointestinal: Negative. Genitourinary: Negative. Musculoskeletal: Negative for neck pain. Neurological: Negative for headaches. Psychiatric/Behavioral: Positive for depression. Negative for confusion and decreased concentration. Objective Physical Exam Constitutional: Appearance: Normal appearance. Cardiovascular: Rate and Rhythm: Normal rate and regular rhythm. Pulses: Normal pulses. Heart sounds: Normal heart sounds. Pulmonary: Effort: Pulmonary effort is normal. Abdominal: General: Abdomen is flat. Neurological: Mental Status: She is alert. Assessment/Plan Diagnoses and all orders for this visit: Other iron deficiency anemia Comments: Labs ordered Advised iron rich diet Orders: - CBC auto differential; Future Dietary counseling Exercise counseling Consider use of [id number]-[id number] baby aspirin (81 mg) daily. Counseled re: potential co-morbidities including cardiovascular disease. Maintain a low-sodium diet (less than 2 grams per day). Maintain a regular cardiovascular exercise program. Urinary incontinence, unspecified type Comments: Follows closely with Urologist Stable on Mirabegron Class 2 obesity without serious comorbidity with body mass index (BMI) of 39.0 to 39.9 in adult, unspecified obesity type Maintain a low-sodium diet (less than 2 grams per day). Maintain a regular cardiovascular exercise program. Advised to maintain a low-fat, low-cholesterol diet. Counseled regarding importance of weight loss. Counseled re: potential co-morbidities including cardiovascular disease - Basic Metabolic Panel; Future - Lipid Panel, Standard; Future - Hepatic Function Panel; Future - Referral to Nutrition Therapy; Future Encounter for annual wellness visit Encounter for immunization - PCV-20 VACCINE 6 wks + Other orders - PARoxetine (Paxil) 10 MG tablet; Take 1 tablet (10 mg) by mouth in the morning. documented in this encounter Plan of Treatment Scheduled Orders Name Type Priority Associated Diagnoses Orde r Schedule Basic Metabolic Panel Lab Routine Class 2 obesity without serious comorbidity with body mass index (BMI) of 39.0 to 39.9 in adult, unspecified obesity type Expected: 12/16/2024 (Approximate), Expires: 12/16/2025 Lipid Panel, Standard Lab Routine Class 2 obesity without serious comorbidity with body mass index (BMI) of 39.0 to 39.9 in adult, unspecified obesity type Expected: 12/16/2024 (Approximate), Expires: 12/16/2025 Hepatic Function Panel Lab Routine Class 2 obesity without serious comorbidity with body mass index (BMI) of 39.0 to 39.9 in adult, unspecified obesity type Expected: 12/16/2024 (Approximate), Expires: 12/16/2025 CBC auto differential Lab Routine Other iron deficiency anemia Expected: 12/16/2024 (Approximate), Expires: 12/16/2025 Scheduled Referrals Name Type Priority Associated Diagnoses Orde r Schedule Referral to Nutrition Therapy Outpatient Referral Routine Class 2 obesity without serious comorbidity with body mass index (BMI) of 39.0 to 39.9 in adult, unspecified obesity type Expected: 12/16/2024 (Approximate), Expires: 12/16/2025 documented as of this encounter Visit Diagnoses Diagnosis Other iron deficiency anemia- Primary Dietary counseling Dietary surveillance and counseling Exercise counseling Urinary incontinence, unspecified type Class 2 obesity without serious comorbidity with body mass index (BMI) of 39.0 to 39.9 in adult, unspecified obesity type Encounter for annual wellness visit Encounter for immunization documented in this encounter Additional Health Concerns Assessment Noted Time PHQ-9 Depression Total Score: 12 024 9:18 AM EST documented as of this encounter Care Teams Ships Equipment Engineer Relationship Specialty Start Date End Date Karen Burden MD [address] [place] [phone] PCP - General Family Medicine 01/16/20 documented as of this encounter
--- OUTSIDE RECORDS SUMMARY | 2024-12-16 17:04 | XMS_ITS | Encounter Summary ---
Author Organization [employer] [facility] Address [address] [place] [address] [address] [place] [address] Care Team Providers Care Supervisor Instrument Mechanics Name Role Phone Karen Burden MD Primary Care Provider [phone] Reason for Visit * Reason Comments Med Refill Encounter Details Date Type Department Care Team ([facility] Contact Info) Description 11/25/2022 Refill [facility] CHC MED & PEDS [address] [place], [place] [phone] Karen Burden MD [address] [place] [address] Social History Tobacco Use Types Packs/Day Years [...] on filedocumented in this encounter Care Teams Supervisor Instrument Mechanics Relationship Specialty Start Date End Date Karen Burden MD [address] [place] [address] PCP - General Family Medicine 01/16/20 documented as of this encounter
--- OUTSIDE RECORDS SUMMARY | 2024-12-16 17:04 | XMS_ITS | Encounter Summary ---
Author Organization [email or web address] [facility] Address [address] [place] [address] Care Team Providers Care Oven Attendant Name Role Phone Karen Burden MD Primary Care Provider [phone] Encounter Details Date Type Department Care Team (Latest Contact Info) Description 12/16/2024 Travel Social History Tobacco Use Types Packs/Day Years [...] documented as of this encounter Care Teams Oven Attendant Relationship Specialty Start Date End Date Karen Burden MD [address] [place] [address] PCP - General Family Medicine 01/16/20 documented as of this encounter
--- OUTSIDE RECORDS SUMMARY | 2024-12-16 17:04 | XMS_ITS | Clinical Summary ---
Author Organization [facility] Address [address] [place] [address] Care Team Providers Care Color Repairer Name Role Phone Karen Burden MD Primary Care Provider [phone] Allergies No known active allergies Medications famotidine (Pepcid) 20 MG tablet Take 20 mg by mouth. 02/15/20 24 Active naproxen (Naprosyn) 500 MG tablet TAKE 1 TABLET BY MOUTH TWICE A DAY NEEDED BACK PAIN 11/01/19 24 Active mirabegron ER (Myrbetriq) 25 MG 24 hr tablet 0 Refills, Maintenance, 09/27/24 11:26:00 AM EST, Partial fill upon patient request if the prescription is for a schedule II opioid drug. 09/27/19 25 Active PARoxetine (Paxil) 10 MG tablet Take 1 tablet (10 mg) by mouth in the morning. 30 tablet 11 12/17/19 25 026 Active oxybutynin XL (Ditropan XL) 5 MG 24 hr tablet Take 1 tablet (5 mg) by mouth Once per day. Do not crush, chew, or split. 30 tablet 11 06/19/20 24 025 Discontinued PARoxetine (Paxil) 10 MG tablet Take 1 tablet (10 mg) by mouth in the morning. 30 tablet 11 06/19/20 24 025 Discontinued(R eorder (will not trigger notification to Pharmacy)) Active Problems Problem Noted Date Diagnosed Date Anemia 06/19/2024 Depression 06/19/2024 Epidermoid cyst 06/19/2024 Family history of neoplasm of breast 06/19/2024 GERD (gastroesophageal reflux disease) Obesity 06/19/2024 Breast microcalcifications 11/02/2023 History of hysterectomy for benign disease 05/15 Encounters Date Type Department Care Team Description 12/16/2024 11:15 AM EDT Office Visit [facility] [address] [place] [address] Karen Burden MD Other iron deficiency anemia (Primary Dx); Dietary counseling; Exercise counseling; Urinary incontinence, unspecified type; Class 2 obesity without serious comorbidity with body mass index (BMI) of 39.0 to 39.9 in adult, unspecified obesity type; Encounter for annual wellness visit; Encounter for immunization 12/16/2024 Travel 11/06/2024 Orders Only [facility] External Provider, [facility] from Last 3 Months Immunizations Name Administration Dates Next Due INFLUENZA VACCINE QUADRIVALE NT RECOMBINANT PRESERVATIVE FREE RIV4 09/08/2020 Influenza injectable quadriv alent preservative free 07/12/2023,05/13/2022,06/25/2018 Influenza, seasonal, injecta ble, preservative free 06/19/2024,05/20/2016 Pfizer Covid-19 Vaccine 12+ 06/19/2024 Pneumococcal Conjugate PCV 20 12/16/2024 Pneumococcal Polysaccharide PPSV23 01/20/2018 Tdap 01/09/2018 Zoster, [...] 18 12/16/2024 11:04 AM EDT Oxygen Saturation 97% 06/19/2024 8:44 AM EST Inhaled Oxygen Concentration - - Weight 88.9 kg (196 lb) 12/16/2024 11:04 AM EDT Height 157.5 cm (5' 2 ) 12/16/2024 11:04 AM EDT Body Mass Index 35.85 12/16/2024 11:04 AM EDT Plan of Treatment Health Maintenance Due Date Last Done Comments CT Colonography 1966 Colonoscopy 1966 FIT 1966 FOBT 1966 HIV Screening 1966 Sigmoidoscopy 1966 Hepatitis C Screening 1984 Hepatitis B Vaccines (1 of 3 - 19+ 3-dose series) 1985 Mammogram 2006 Zoster Vaccines (2 of 2) 07/18/2023 05/23/2023 Depression Screening 06/19/2025 06/19/2024, 06/19/20 24 Alcohol/Substance Use Screening 12/16/2025 12/16/2024 SDOH Screening 12/16/2025 12/16/2024 Tobacco Screening 12/16/2025 12/16/2024 Colorectal Cancer Screening 11/19/2026 FIT DNA/Cologuard 11/19/2026 11/20/2023 DTaP/Tdap/Td Vaccines (2 - Td or Tdap) 01/10/2028 01/09/2018 Lipid Panel 11/01/2028 11/02/2023, 02/13/2023 RSV Patients and Patients Aged 60 years or older (1 - 1-dose 75+ series) 2041 COVID-19 Vaccine Completed 06/19/2024, 05/2023, 07/18/2021, Additional history exists Influenza Vaccine Completed 06/19/2024, , 05/13/2022, Additional history exists Pneumococcal Vaccine: 50+ Years Completed 12/16/2024, 01/20/2018 HIB Vaccines Aged Out No longer eligi [...] Procedure Name Priority Date/Time Associated Diagnosis Comments US RETROPERITONEAL COMPLETE Routine 11/06/2024 3:44 PM EDT LAB COLOGUARD?? COLON CANCER SCREEN Routine 11/20/2023 3:06 PM EDT Encounter for screening for malignant neoplasm of colon LIPID PANEL, STANDARD Routine 11/02/2023 9:53 AM EDT Obesity (BMI 35.0-39.9 without comorbidity) from Last 3 Months or Most Recently Relevant to Health Maintenance Results * US Retroperitoneal Complete (11/06/2024 3:44 PM EDT) Anatomical Region Laterality Modality Ultrasound 11/06/2024 3:44 PM EDT Narrative 11/07/2024 7:03 AM EDT ? [facility] ?[address] ?[place] [address] ? Ultrasound Report ? Signed ? Patient: Chantale Dove ?MR#: [id number] ?? 34 ? : 1965 ?Acct:[id number] ? Age/Sex: 59 / F ?ADM Date: 11/06/24 ? Loc: HO.US ? Attending Dr: Ana HERZOG ? Ordering Physician: Ana Capone ?? Date of Service: 11/06/24 ?? Procedure(s): US retroperitoneal comp ?? Accession Number(s): [id number] ? cc: Ana Capone; Karen Burden MD ? EXAMINATION: ??US RETROPERITONEUM ? HISTORY: N39.46 - Mixed incontinence ? TECHNIQUE: Real-time grayscale ultrasound imaging of the kidneys was ?? performed and images were reviewed. ? COMPARISON: There are no prior studies for comparison. ? FINDINGS: ? Right kidney: ??The right kidney measures 11.1 x 4.4 x 4.0 cm. ??Renal ?? parenchymal echotexture and thickness are normal. ??There are no masses. ?? There is no hydronephrosis or renal calculi. ? Left Kidney: ??The left kidney measures 11.9 x 5.3 x 5.3 cm. ??Renal ?? parenchymal echotexture and thickness are normal. ??There are no masses. ?? There is no hydronephrosis or renal calculi. ? The urinary bladder is unremarkable. Bilateral ureteral jets are ?? identified. Before voiding, the urinary bladder measured 8.1 x 5.5 x ?? 8.7 cm, for an estimated volume of 202 mL. After voiding, the urinary ?? bladder measured 3.4 x 2.2 x 5.3 cm, for an estimated volume of 21 mL. ? US/US retroperitoneal comp ?? IMPRESSION: ? Unremarkable renal ultrasound. Post void bladder residual of 21 mL. ? Electronically signed by: ??Helio Eagle MD ??11/07/2024 07:00 AM EDT ? Dictated By: ?Helio Eagle MD ? Signed By: ?<Electronically signed by Helio Eagle MD in OV> ?11/07/24 0700 ? DD/ 1544 ? TD/TT: 11/06/24 1553 ? Anodizer: ? Procedure Note Donotuseinterpreter, Image - 11/07/[address] [address] Ultrasound Report Signed Patient: Armand Dove#: [id number] [birth year] : 1965Acct:[id number] Age/Sex: 59 / FADM Date: 11/06/24 Loc: HO.US Attending Dr: Ana HERZOG Ordering Physician: Ana Capone Date of Service: 11/06/24 Procedure(s): US retroperitoneal comp Accession Number(s): [id number] cc: Ana Capone; Karen Burden MD EXAMINATION: US RETROPERITONEUM HISTORY: N39.46 - Mixed incontinence TECHNIQUE: Real-time grayscale ultrasound imaging of the kidneys was performed and images were reviewed. COMPARISON: There are no prior studies for comparison. FINDINGS: Right kidney: The right kidney measures 11.1 x 4.4 x 4.0 cm. Renal parenchymal echotexture and thickness are normal. There are no masses. There is no hydronephrosis or renal calculi. Left Kidney: The left kidney measures 11.9 x 5.3 x 5.3 cm. Renal parenchymal echotexture and thickness are normal. There are no masses. There is no hydronephrosis or renal calculi. The urinary bladder is unremarkable. Bilateral ureteral jets are identified. Before voiding, the urinary bladder measured 8.1 x 5.5 x 8.7 cm, for an estimated volume of 202 mL. After voiding, the urinary bladder measured 3.4 x 2.2 x 5.3 cm, for an estimated volume of 21 mL. US/US retroperitoneal comp IMPRESSION: Unremarkable renal ultrasound. Post void bladder residual of 21 mL. Electronically signed by: Helio Eagle MD 11/07/2024 07:00 AM EDT Dictated By: Helio Eagle MD Signed By: <Electronically signed by Helio Eagle MD in OV> 11/07/24 0700 DD/ 1544 TD/TT: 11/06/24 1553 Anodizer: us [facility] External Provider IMG US PROCEDURES Final Result * Cologuard?? colon cancer screening (11/20/2023 3:06 PM EDT) Cologuard Result Negative Negative 11/24/19 7:05 PM EDT [facility] (CLIA #:[id number]) Comment: NEGATIVE TEST RESULT. A negative Cologuard [...] screened with both Cologuard and colonoscopy. (Eun Pina. et al, N Engl J Med 2014;370(14):1286- 1297) The normal value (reference range) for this assay is negative. COLOGUARD RE-SCREENING RECOMMENDATION: Periodic colorectal cancer screening is an important part of preventive healthcare for asymptomatic individuals at average risk for colorectal cancer. ??Following a negative Cologuard result, the [place] [employer] and U.S. Multi-Society Task Force screening guidelines recommend a Cologuard re-screening interval of 3 years. References: [place] [employer] Guideline for Colorectal Cancer Screening: https://www.cancer.org/cancer/xjair-bkgezh-unnzjy/rzcqfovln-ftwapadff-nffylvv/ac s-rec ommendations.html.; Bruno MARADIAGA, Kiana FELDER, Pretty VILLANUEVA, Colorectal Cancer Screening: Recommendations for Physicians and Patients from the U.S. Multi-Society Task Force on Colorectal Cancer Screening , Am J Gastroenterology 2017; 112:4520-2195. TEST DESCRIPTION: Composite algorithmic analysis of stool [...] (Eun Walker al, N Engl J Med 2014;370(14):2851-1996.) Cologuard may produce a false negative or false positive result (no colorectal cancer or precancerous polyp present at colonoscopy follow up). A negative Cologuard test result does not guarantee the absence of CRC or advanced adenoma (pre-cancer). The current Cologuard screening interval is every 3 years. ([place] [employer] and U.S. Multi-Society Task Force). Cologuard performance data in a 10,000 patient pivotal study using colonoscopy as the reference method can be accessed at the following location: www.CareToSave.[employer]/results. Additional description of the Cologuard test process, warnings and precautions can be found at www.Syntargard.com. Stool specimen (specimen) 11/20/2023 3:06 PM EDT 11/21/2023 2:44 PM EDT Karen Burden MD LAB MOLECULAR DIAGNOSTICS ORDERA BLES Final Result [facility] (CLIA #:[id number]) [address] [place] [address], [place] [phone] * Lipid Panel, Standard (11/02/2023 9:53 AM EDT) Triglycerides 77 <150 mg/dL [facility] Comment:Desirable Triglyceri de: less than 150 mg/dLBorderline High Triglyceride 150-199 mg/dLHigh Triglyceride: 200-499 mg/dLVery High Triglyceride: greater than or equal to 5OO mg/dL Cholesterol 165 <200 mg/dL [facility] Comment:Desirable Cholestero l: less than 200 mg/dLBorderline High Cholesterol: 200-239 mg/dLHigh Cholesterol: greater than 239 mg/dL LDL Cholesterol Calculated 90 <100 mg/dL [facility] Comment:Desirable LDL: less than 100 mg/dLNear Optimal/Above Optimal LDL: 110- 129 mg/dLBorderline High LDL: 130-159 mg/dLHigh LDL: 160-189 mg/dLVery High LDL: greater than or equal to 190 mg/dL HDL Cholesterol 60 >40 mg/dL [facility] Comment:Desirable HDL: great er than 40 mg/dL Note: This HDL assay may give artificially low results in patients with liver disease. Blood Venous blood specimen / Unknown 11/02/2023 9:53 AM EDT 11/02/2023 2:45 PM EDT Karen Burden MD LAB BLOOD ORDERABLES Final Resul t [facility] [address] [place] [phone] from Last 3 Months or Most Recently Relevant to Health Maintenance Insurance [facility] H[facility] Care Teams Color Repairer Relationship Specialty Start Date End Date Karen Burden MD [address] [place] [phone] PCP - General Family Medicine 01/16/20
== END 2024-12-16 15:55 | disposition home or self-care (01) ==
LOC: HO.HUSH 15:29
PROVIDERS: PCP Student in an Organized Health Care Education/Training Program; Visit Provider Nurse Practitioner Family
DX: N39.46 Mixed incontinence (principal)
CPT/HCPCS: 99213

== ENCOUNTER → 2024-12-16 15:28 | Outpatient (BNVA) | payer BC, SELFPAY | PROVIDERS: PCP Student in an Organized Health Care Education/Training Program; Visit Provider Nurse Practitioner Family | DX: N39.46 Mixed incontinence (principal) | CPT/HCPCS: 51798 ==

== ENCOUNTER 2025-04-11 07:57 | Outpatient (AMB) | payer BC, SELFPAY ==
--- OUTSIDE RECORDS SUMMARY | 2025-04-11 08:00 | XMS_ITS | Clinical Summary ---
Author Organization [facility] ity Address [address] [place] [address] Care Team Providers Care Thread Twister Name Role Phone Livier Lombardo MD Primary Care Provider [phone] Social History Tobacco Use Types Packs/Day Years [...] 2) 2016 Colorectal Cancer Screening: Colonoscopy 07/24/2022 HIV Screening 07/24/2022 Hepatitis C Screening 07/24/2022 Social Influencers of Health Screening 07/24/2022 COVID-19 Vaccine (1 - season) 2024 Depression Screening 08/14/2024 Influenza Vaccine (#1) 2025 Breast Cancer Screening 04/04/2026 04/04/20 24, [...] Procedure Name Priority Date/Time Associated Diagnosis Comments [facility] SCREENING DIGITAL Routine 04/04/2024 3:55 PM EDT Encounter for screening mammogram for malignant neoplasm of breast from Last 3 Months or Most Recently Relevant to Health Maintenance Results * [facility] SCREENING DIGITAL (04/04/2024 3:55 PM EDT) Anatomical Region Laterality Modality Mammography 04/04/2024 3:19 PM EDT Narrative 04/04/2024 3:55 PM EDT [facility] Diagnostic Imaging Department [address] [place] [id number] Patient: YOLANDA CARPENTER./Age/Sex: 1965 - 58 - F Unit#: [id number] Location/Status: SPDIMAM/REG CLI Mnemonic/Ordering Site: [facility] Ordering Physician: ALEXANDER BURDEN MD [facility] Screening Digital - 04/04/24 - 1532 Report Status:Signed EXAM: [facility] Screening Digital EXAM DATE AND TIME: 04/04/2024 3:32 PM HISTORY: Screening. Right breast biopsy in 2022, pathology benign. COMPARISON: 03/09/23, 03/02/23, 02/10/23, 08/03/21, 08/01/20 TECHNIQUE: Bilateral digital breast tomosynthesis was performed in the CC and MLO projections. Computer aided detection with [employer] 3D 3.1 was emp loyed. TISSUE DENSITY: b. There are scattered areas of fibroglandular density. FINDINGS: A biopsy marker is again seen in the posterolateral right breast. Residual microcalcifications are without significant change. No suspicious masses, grouped microcalcifications, or areas of architectural distortion are seen. The skin and vascularity are unremarkable. IMPRESSION: Stable mammographic appearance of the breasts. No evidence of malignancy is seen. A negative mammogram in the presence of a clinically suspicious palpable abnormality does not preclude the possibility of malignancy or alter the indications for biopsy. BI-RADS: Category 2: Benign RECOMMENDATION(S): 1: Routine screening mammogram BILATERAL in 1 year. Dictating Physician: ASHLY FRENCH MD Electronically Signed by: ASHLY FRENCH MD Dic Date/Time: 04/04/24 155 Sign date/Time: 04/04/24 1551 Procedure Note Ashly French MD - 05/29/2024 [facility] Diagnostic Imaging Department [address] [place] [id number] Patient: YOLANDA CARPENTER/Age/Sex: 1965 - 58 - F Unit#: [id number] Location/Status: SPDIMAM/REG CLI Mnemonic/Ordering Site: [facility] Ordering Physician: ALEXANDER BURDEN MD [facility] Screening Digital - 04/04/24 - 1532 Report Status:Signed EXAM: [facility] Screening Digital EXAM DATE AND TIME: 04/04/2024 3:32 PM HISTORY: Screening. Right breast biopsy in 2022, pathology benign. COMPARISON: 03/09/23, 03/02/23, 02/10/23, 08/03/21, 08/01/20 TECHNIQUE: Bilateral digital breast tomosynthesis was performed in the CCand MLO projections. Computer aided detection with [employer] 3D 3.1 wasemp loyed. TISSUE DENSITY: b. [...] Signed by: ASHLY FRENCH MD Dic Date/Time: 04/04/241553 Sign date/Time: 04/04/241554 Alexander Burden MD IMG BI PROCEDURES Final Result from Last 3 Months or Most Recently Relevant to Health Maintenance Care Teams Thread Twister Relationship Specialty Start Date End Date Livier Lombardo MD [address] [place] [address] [facility] - General 07/29/21
--- OUTSIDE RECORDS SUMMARY | 2025-04-11 08:00 | XMS_ITS | Clinical Summary ---
Author Organization [employer] Address [address] [address] [place] [address] Care Team Providers Care Fire Systems Inspector Name Role Phone Karen Burden MD Primary Care Provider [phone] Allergies No known active allergies Medications famotidine (Pepcid) 20 MG tablet Take 20 mg by mouth. 4 Active naproxen (Naprosyn) 500 MG tablet TAKE 1 TABLET BY MOUTH TWICE A DAY NEEDED BACK PAIN 4 Active mirabegron ER (Myrbetriq) 25 MG 24 hr tablet 0 Refills, Maintenance, 09/27/24 11:26:00 AM EST, Partial fill upon patient request if the prescription is for a schedule II opioid drug. 5 Active PARoxetine (Paxil) 10 MG tablet Take 1 tablet (10 mg) by mouth in the morning. 30 tablet 11 5 12/12/19 26 Active Active Problems Problem Noted Date Diagnosed Date Anemia 06/19/2024 Depression 06/19/2024 Epidermoid cyst 06/19/2024 Family history of neoplasm of breast 06/19/2024 GERD (gastroesophageal reflux disease) 4 Obesity 06/19/2024 Breast microcalcifications 11/02/2023 History of hysterectomy for benign disease 05/15 Encounters Date Type Department Care Team Description 01/23/2025 3:00 PM EDT Nutrition [facility] [address] [place] [address] Class 2 obesity without serious comorbidity with body mass index (BMI) of 39.0 to 39.9 in adult, unspecified obesity type 01/23/2025 Travel 01/20/2025 Telephone [facility] [address] [place] [address] Appointment 01/16/2025 Telephone [facility] [address] [place] [address] Karen Burden MD Appointment Request from Last 3 Months Immunizations Immunization Administration Dates Next Due INFLUENZA VACCINE QUADRIVALE [...] is your housing situation today? I have alexolga ram 12/16/[address] you [...] 75 12/16/2024 11:04 AM EDT Temperature 36.7 C (98.1 F) 12/16/2024 11:04 AM EDT Respiratory Rate 18 12/16/2024 11:0 4 AM EDT Oxygen Saturation 97% 06/19/2024 8:44 AM EST Inhaled Oxygen Concentration - - Weight 90.6 kg (199 lb 12.8 oz) 01/24/2025 3:08 PM EDT Height 157.5 cm (5' 2 ) 01/24/2025 3:08 PM EDT Body Mass Index 36.54 01/24/2025 3:08 PM EDT Plan of Treatment Health Maintenance Due Date Last Done Comments CT Colonography 1965 Colonoscopy 1966 FIT 1966 FOBT 1966 HIV Screening 1966 Sigmoidoscopy 1966 Hepatitis C Screening 1984 Hepatitis B Vaccines (1 of 3 - 19+ 3-dose series) 1985 Mammogram 2006 Zoster Vaccines (2 of 2) 07/18/2023 05/23/2023 Depression Monitoring 12/17/2024 06/19/2024, 024 Influenza Vaccine (#1) 2025 , 07/12/2023, 05/13/2022, Additional history exists Alcohol/Substance Use Screening 12/16/2025 12/16/2024 Disability Screening 12/16/2025 12/16/2024 SDOH Screening 12/16/2025 12/16/2024 Tobacco Screening 12/16/2025 12/16/2024 Colorectal Cancer Screening 11/19/2026 FIT DNA/Cologuard 11/19/2026 11/20/2023 DTaP/Tdap/Td Vaccines (2 - Td or Tdap) 01/10/2028 01/09/2018 Lipid Panel 11/01/2028 11/02/2023, 02/13/2023 RSV Patients and Patients Aged 60 years or older (1 - 1-dose 75+ series) 2041 COVID-19 Vaccine Completed 06/19/2024, 05/2023, 07/18/2021, Additional history exists Pneumococcal Vaccine: 50+ Years [...] Name Priority Date/Time Associated Diagnosis Comments LAB COLOGUARD COLON CANCER SCREEN Routine 11/20/2023 3:06 PM EDT Encounter for screening for malignant neoplasm of colon LIPID PANEL, STANDARD Routine 11/02/2023 9:53 AM EDT Obesity (BMI 35.0-39.9 without comorbidity) from Last 3 Months or Most Recently Relevant to Health Maintenance Results * Cologuard?? colon cancer screening (11/20/2023 3:06 PM EDT) Cologuard Result Negative Negative 11/24/19 24 7:05 PM EDT [facility] (CLIA #:[id number]) Comment: NEGATIVE TEST RESULT. A negative Cologuard result indicates a low likelihood that a colorectal cancer (CRC) or advanced adenoma (adenomatous polyps with more advanced pre-malignant features) is present. The chance that a person with a negative Cologuard test has a colorectal cancer is less than 1 in 1500 (negative predictive value >99.9%) or has an advanced adenoma is less than 5.3% (negative predictive value 94.7%). These data are based on a prospective cross-sectional study of 10,000 individuals at average risk for colorectal cancer who were screened with both Cologuard and colonoscopy. (Eun Pina. et al, N Engl J Med 2014;370(14):1461-4272) The normal value (reference range) for this assay is negative. COLOGUARD RE-SCREENING RECOMMENDATION: Periodic colorectal cancer screening is an important part of preventive healthcare for asymptomatic individuals at average risk for colorectal cancer. Following a negative Cologuard result, the [place] [employer] and U.S. Multi-Society Task Force screening guidelines recommend a Cologuard re-screening interval of 3 years. References: [place] [employer] Guideline for Colorectal Cancer Screening: https://www.cancer.org/cancer/opuca-jtdnun-ceeopb/cvubdtjxl-rnhtofart-pdgmweh/ac s-rec ommendations.html.; Bruno MARADIAGA, Kiana FELDER, Pretty VILLANUEVA, Colorectal Cancer Screening: Recommendations for Physicians and Patients from the U.S. Multi-Society Task Force on Colorectal Cancer Screening , Am J Gastroenterology 2017; 112:9644-2094. TEST DESCRIPTION: Composite algorithmic analysis of stool DNA-biomarkers with hemoglobin immunoassay. Quantitative values of individual biomarkers are not [...] screened with both Cologuard and colonoscopy. (Eun Wright et al, N Engl J Med 2014;370(14):2002-8949.) Cologuard may produce a false negative or false positive result (no colorectal cancer or precancerous polyp present at colonoscopy follow up). A negative Cologuard test result does not guarantee the absence of CRC or advanced adenoma (pre-cancer). The current Cologuard screening interval is every 3 years. ([place] [employer] and U.S. Multi-Society Task Force). Cologuard performance data in a 10,000 patient pivotal study using colonoscopy as the reference method can be accessed at the following location: www.[employer]/results. Additional description of the Cologuard test process, warnings and precautions can be found at www.Attractard.com. Stool specimen (specimen) 11/20/2023 3:06 PM EDT 11/21/2023 2:44 PM EDT us Karen Burden MD LAB MOLECULAR DIAGNOSTICS ORDERA BLES Final Result [facility] (CLIA #:[id number]) [address] [place] [address], * Lipid Panel, Standard (11/02/2023 9:53 AM EDT) Triglycerides 77 <150 mg/dL [facility] Comment:Desirable Triglyceri de: less than 150 mg/dLBorderline High Triglyceride 150-199 mg/dLHigh Triglyceride: 200-499 mg/dLVery High Triglyceride: greater than or equal to 5OO mg/dL Cholesterol 165 <200 mg/dL [facility] Comment:Desirable Cholestero l: less than 200 mg/dLBorderline High Cholesterol: 200-239 mg/dLHigh Cholesterol: greater than 239 mg/dL LDL Cholesterol Calculated 90 <100 mg/dL [facility] Comment:Desirable LDL: less than 100 mg/dLNear Optimal/Above Optimal LDL: 110- 129 mg/dLBorderline High LDL: 130-159 mg/dLHigh LDL: 160-189 mg/dLVery High LDL: greater than or equal to 190 mg/dL HDL Cholesterol 60 >40 mg/dL [facility] Comment:Desirable HDL: great er than 40 mg/dL Note: This HDL assay may give artificially low results in patients with liver disease. Blood Venous blood specimen / Unknown 11/02/2023 9:53 AM EDT 11/02/2023 2:45 PM EDT us Karen Burden MD LAB BLOOD ORDERABLES Final Resul t [facility] [address] [place] [phone] from Last 3 Months or Most Recently Relevant to Health Maintenance Insurance [address] [place], [place] [id number] Care Teams Fire Systems Inspector Relationship Specialty Start Date End Date Karen Burden MD [address] [place] [phone] PCP - General Family Medicine 01/16/20
--- OUTSIDE RECORDS SUMMARY | 2025-04-11 08:00 | XMS_ITS | Encounter Summary ---
Author Organization [employer] Address [address] [facility] [address] [place] [address] Care Team Providers Care Rn Orthopaedics Name Role Phone Karen Burden MD Primary Care Provider [phone] Encounter Details Date Type Department Care Team (Late st Contact Info) Description 02/13/2023 Orders Only [facility] CHC MED & PEDS [address] [place], [place] [phone] Karen Burden MD [address] [place] [address] Social History Tobacco Use Types Packs/Day Years [...] documented as of this encounter Care Teams Rn Orthopaedics Relationship Specialty Start Date End Date Karen Burden MD [address] [place] [address] PCP - General Family Medicine 01/16/20 documented as of this encounter
--- OUTSIDE RECORDS SUMMARY | 2025-04-11 08:00 | XMS_ITS ---
Author Name [facility] Organization Unknown Care Team Organization Name Specialty Phone Email Start Date End Da te [facility] MARTHA JENKINS Primary Care 10/19/2022 04/01/20 [facility] Daquan Saldivar MD Primary Care 06/21/202204/01
--- OUTSIDE RECORDS SUMMARY | 2025-04-11 08:00 | XMS_ITS | Encounter Summary ---
Author Organization [employer] Address [address] [facility] [address] [place] [address] Care Team Providers Care International Trade Compliance Manager Name Role Phone Karen Burden MD Primary Care Provider [phone] Reason for Visit * Reason Comments Med Refill Encounter Details Date Type Department Care Team ([facility] st Contact Info) Description 11/25/2022 Refill [facility] CHC MED & PEDS [address] [place], [place] [phone] Karen Burden MD 505 [place] [address] Social History Tobacco Use Types Packs/Day Years [...] on filedocumented in this encounter Care Teams International Trade Compliance Manager Relationship Specialty Start Date End Date Karen Burden MD [address] [place] [address] PCP - General Family Medicine 01/16/20 documented as of this encounter
--- OUTSIDE RECORDS SUMMARY | 2025-04-11 08:00 | XMS_ITS | Encounter Summary ---
Author Organization [employer] Address [address] [facility] [address] 7[address] [place] [address] Care Team Providers Care Financial Controller Name Role Phone Karen Burden MD Primary Care Provider [phone] Encounter Details Date Type Department Care Team ([facility] st Contact Info) Description 06/13/2023 Orders Only [facility] CHC MED & PEDS [address] [place] [address] Catherine Centeno MD 505 [place] [address] Tongue irritation (Primary Dx) Social History Tobacco [...] documented as of this encounter Care Teams Financial Controller Relationship Specialty Start Date End Date Karen Burden MD [address] [place] [address] PCP - General Family Medicine 01/16/20 documented as of this encounter
--- OUTSIDE RECORDS SUMMARY | 2025-04-11 08:00 | XMS_ITS | Encounter Summary ---
Author Organization [employer] Address [address] [facility] [address] 7[address] [place] [address] Care Team Providers Care Egg Tester Name Role Phone Karen Burden MD Primary Care Provider [phone] Reason for Visit * Reason Onset Date Comments Appointment Request 01/16/2025 Encounter Details Date Type Department Care Team ([facility] Contact Info) Description 01/16/2025 Telephone [facility] MEDICINE [address] [place] [address] Karen Burden MD [address] [place] [address] Appointment Request Social History Tobacco Use Types Packs/Day Years [...] AM EDT documented as of this encounter Miscellaneous Notes * Telephone Encounter - Mathew Marie - 01/16/2025 11:16 AM EDT Tc from pt requesting to reschedule certified caregiver appt. Please contact pt at [phone]. documented in this encounter Plan of Treatment Not on file documented as of this encounter Visit Diagnoses Not on filedocumented in this encounter Additional Health Concerns Assessment Noted Time PHQ-9 Depression Total Score: 12 024 9:18 AM EST documented as of this encounter Care Teams Egg Tester Relationship Specialty Start Date End Date Karen Burden MD [address] [place] [address] PCP - General Family Medicine 01/16/20 documented as of this encounter
--- NOTE | 2025-04-11 08:03 | MHC.OFFVIS ---
Intake Visit Reasons: UroD Intake Note: Patient presents for: urodynamics ref re Urology Medications: Blood Thinner: none PVR: 75mls Trouble Tracer Required: No Accompanied by: Self / Same As Patient Allergies No Known Allergies Allergy (Verified 04/11/25 08:07) HPI Comments Details: 04/11/25--Chantale is here for urodynamics. The patient has complaints of urinary incontinence. Interpretation: During the filling phase there was detrusor overactivity during the filling phase. Objective stress was not able to be evaluated due to leakage associated with uninhibited detrusor contractions at low bladder volume. EMG- Appropriate changes in the waveforms were noted through out the study. Discussed OAB care pathway, including fluid management, dietary modifications, including caffeine intake. Bladder control strategies, including pelvic floor exercises. Discessed that urinary leakage can be related to pelvic floor muscles weakness and/or bladder spasms. Treatment options discussed for OAB included anticholinergics/antimuscarinics, neuromodulation, bladder botox injection. 12/16/24--Chantale is a very pleasant 59-year-old female patient of Dr. Burden. She has a past medical history of depression and mixed urinary incontinence. She presents to the office today for follow-up of her mixed urinary incontinence. Recent renal imaging results were reviewed with the patient today. 11/05 bilateral kidneys are normal in size and echotexture. There are no renal masses, hydronephrosis, renal calculi noted. The urinary bladder is unremarkable. Bladder jets are demonstrated. Pre void bladder volume is approximately 200 mL. Postvoid bladder volume is approximately 20 mL. She reports feeling symptoms of mixed urinary incontinence improved for approximately 2 weeks with initiation of Myrbetriq however shortly after felt symptoms returned. She has previously trialed oxybutynin with minimal improvement. She continues to utilize 2-3 Cecile pads per day. She reports urinary urgency and frequency with episodes of incontinence if not near a bathroom as well as episodes of incontinence with coughing, sneezing, and or exercising. She otherwise denies hematuria, dysuria, foul smelling urine, changes to urinary stream, flank pain, fever, and or chills. Unable to obtain urine for urinalysis as patient unable to void however PVR 23ml's. We discussed at length potential causes of lower urinary tract symptoms patient is experiencing as well as further treatment options and risks and benefits of these treatment options. She otherwise offers no other issues or concerns at this time. PFSH Surgical History Hx of hysterectomy Hx of gastric bypass Family History Family/Other Family history- stomach cancer Review of Systems Const All systems reviewed & are unremarkable except as noted in HPI and below Reports no additional complaints Eyes Reports no additional complaints ENT Reports no additional complaints Card Reports no additional complaints Resp Reports no additional complaints GI Reports no additional complaints Reports as per HPI Musc Reports no additional complaints Skin/Breast Reports system reviewed and no additional complaints, except as documented Neuro Reports no additional complaints Psych Reports no additional complaints Endo Reports no additional complaints Juliano/Lymph Reports no additional complaints Aller/Immun Reports no additional complaints Office Procedures Post Void Residual Post Residual Void Post Void Residual (PVR): 75 35778-Frfp Void Residual by ultrasound Urodynamic Studies Consent Discussed risk and benefit or proposed procedure with the patient. Information consent for procedure given to the patient. Discussed technical aspects, risks, benefits and alternatives in full. Addressed all of the patient's questions and concerns regarding the procedure. The patient demonstrated knowledge and understanding. They wish to proceed with this procedure. Preparation The patient was prepped in the usual manner. A home hospice aide was present and in the room. Genitalia was prepped with betadine solution in a sterile manner. Procedure Complex Uroflow Unable to perform due to patient voiding just prior. Cystometrogram ? Vaginal/rectal catheter type: Vaginal First sensation at (mL): 42 mL First desire at (mL): 47 mL Strong desire to void occurred at (mL): 77 mL Strong desire detrusor pressure (cm H2O): 2.3 Maximum Capacity (mL): 117 mL Voiding Summary Voided with max detrusor pressure of (cm H2O): 50 Maximum flow rate (mL/second): 7.8 mL/s Voided volume (mL): ? 63ml (patient voided more once catheters were removed) Calculated PVR: 0 mL Stress Testing Unable to perform due to uncontrolled DO. DO Dry: 49ml, 96ml, 114ml DO Wet:117ml Prep: The patient was prepped in the usual manner. A home hospice aide was present and in the room. Genitalia was prepped with betadine solution in a sterile manner. 86904-Jyngjjacnnptqm w/ ASSOCIATE PROFESSOR OF LITERATURE 27142-Wrlfaav-Mputweytcwwb 85752-Beux/Urinary Muscle Study 67312-Ozuft-Bupmifaex Pressure Test Procedure code (CPT) selection complete Office Meds nitrofurantoin monohydrate/macrocrystals 100 mg capsule Performing Provider: Pa Mcgraw MD [facility] Administered by: Ruth Dailey RN on 04/11/25 08:55 Dose Route Admin Location Dispensed Lot Number Expiration Date [facility] Melt House Supervisor 100 mg PO 1 cap Results AMB Urinalysis, Automated UA Leukoctes 15 Osei/uL Last Edit by CESILIA Zavala on 04/11/25 08:22 UA Nitrite Negative Last Edit by CESILIA Zavala on 04/11/25 08:22 UA Urobilinogen 0.2 mg/dL Last Edit by CESILIA Zavala on 04/11/25 08:22 UA Protein 15 mg/dL Last Edit by CESILIA Zavala on 04/11/25 08:22 UA pH 6.0 Last Edit by CESILIA Zavala on 04/11/25 08:22 UA Blood 0 Gordon/uL Last Edit by CESILIA Zavala on 04/11/25 08:22 UA Specific Driggs 1.020 Last Edit by CESILIA Zavala on 04/11/25 08:22 UA Ketone Negative Last Edit by CESILIA Zavala on 04/11/25 08:22 UA Bilirubin 1 mg/dL Last Edit by CESILIA Zavala on 04/11/25 08:22 UA Glucose 0 mg/dL Last Edit by Priya Barker CCM on 04/11/25 08:22 AMB Urinalysis, Automated UA Leukoctes 0 Osei/uL Last Edit by Ruth Dailey RN on 04/11/25 09:01 UA Nitrite Negative Last Edit by Ruth Dailey RN on 04/11/25 09:01 UA Urobilinogen 17 mg/dL Last Edit by Ruth Daiely, MENA on 04/11/25 09:01 UA Protein 0 mg/dL Last Edit by Ruth Dailey RN on 04/11/25 09:01 UA pH 6.0 Last Edit by Ruth Dailey RN on 04/11/25 09:01 UA Blood 0 Gordon/uL Last Edit by Ruth Dailey RN on 04/11/25 09:01 UA Specific Driggs 1.0 Last Edit by Ruth Dailey RN on 04/11/25 09:01 UA Ketone Negative Last Edit by Ruth Dailey RN on 04/11/25 09:01 UA Bilirubin 0 mg/dL Last Edit by Ruth Dailey RN on 04/11/25 09:01 UA Glucose 0 mg/dL Last Edit by Ruth Dailey RN on 04/11/25 09:01 Results Reviewed Results Reviewed: Laboratory Last Values Urine pH (Auto) 6.0 04/11/25 08:18 Urine pH (Auto) 6.0 04/11/25 08:18 Specific Driggs (Auto) 1.0 04/11/25 08:18 Specific Driggs (Auto) 1.020 04/11/25 08:18 Urine Protein (Auto) 0 mg/dL 04/11/25 08:18 Urine Protein (Auto) 15 mg/dL 04/11/25 08:18 Glucose (UA)(Auto) 0 mg/dL 04/11/25 08:18 Glucose (UA)(Auto) 0 mg/dL 04/11/25 08:18 Urine Ketones (Auto) Negative 04/11/25 08:18 Urine Ketones (Auto) Negative 04/11/25 08:18 Urine Blood (Auto) 0 Gordon/uL 04/11/25 08:18 Urine Blood (Auto) 0 Gordon/uL 04/11/25 08:18 Urine Nitrite (Auto) Negative 04/11/25 08:18 Urine Nitrite (Auto) Negative 04/11/25 08:18 Urine Bilirubin (Auto) 0 mg/dL 04/11/25 08:18 Urine Bilirubin (Auto) 1 mg/dL 04/11/25 08:18 Urine Urobilinogen (Auto) 0.2 mg/dL 04/11/25 08:18 Urine Urobilinogen (Auto) 17 mg/dL 04/11/25 08:18 Leukocyte Esterase (Auto) 0 Osei/uL 04/11/25 08:18 Leukocyte Esterase (Auto) 15 Osei/uL 04/11/25 08:18 Assessment & Plan Assessment & Plan (1) OAB (overactive bladder): Code(s): N32.81 - Overactive bladder Category: Medical Plan Failed PO anticholinergic therapy. Schedule Bladder botox injection 100 units Orders: Orders AMB Urodynamics Studies Today N39.46 - Mixed incontinence AMB Urinalysis Automated Today Z13.9 - Encounter for screening, unspecified AMB Post Void Residual by ultrasound Today N39.46 - Mixed incontinence AMB Urinalysis Automated Today Z13.9 - Encounter for screening, unspecified Medications: Discontinued nitrofurantoin monohyd/m-cryst 100 mg Discontinued Reason: Order 100 mg PO ONCE 1 cap 0RF N39.46 - Mixed incontinence Patient Instructions: The patient had an opportunity to ask questions regarding treatment plan. The patient expressed understanding and agreement with the above treatment plan. The patient is aware they should contact our office by phone for worsening of their current condition or the appearance of new symptoms. Compliance is encouraged with any medications and followup testing that is ordered. It is a privilege to be allowed the opportunity to participate in the urologic care of your patient. If you have any questions or concerns regarding treatment for the above conditions please do not hesitate to contact me. The office telephone contact is [phone]. This note is constructed in part using voice recognition software. While every effort has been made to ensure accuracy carpet inspector finished errors may have been included. Yours sincerely, Pa Mcgraw MD Coding Level of Care Code Est Pt Level 4 (57957) Diagnoses OAB (overactive bladder) N32.81 CPT Codes Post Residual Void - PVR CPT Code: 07483-Dels Void Residual by ultrasound ([id number]) Urodynamic Studies - CPT: 15320-Iyrpmslgfugkgv w/ ASSOCIATE PROFESSOR OF LITERATURE ([id number]) Urodynamic Studies - CPT: 53716-Eavnulj-Eunpzmkzmuyn ([id number]) Urodynamic Studies - CPT: 58946-Rzvm/Urinary Muscle Study ([id number]) Urodynamic Studies - CPT: 87812-Fnykh-Qbyjmrrxn Pressure Test ([id number])
== END 2025-04-11 09:37 | disposition home or self-care (01) ==
LOC: HO.HUSH 07:58
PROVIDERS: PCP Student in an Organized Health Care Education/Training Program; Visit Provider Urology
DX: N39.46 Mixed incontinence (principal); N32.81 Overactive bladder; Z13.9 Encounter for screening, unspecified
CPT/HCPCS: 51728; 51741; 51784; 51797; 99214

== ENCOUNTER → 2025-04-11 07:57 | Outpatient (BNVA) | payer BC, SELFPAY | PROVIDERS: PCP Student in an Organized Health Care Education/Training Program; Visit Provider Urology | DX: N39.46 Mixed incontinence (principal); N32.81 Overactive bladder; Z13.9 Encounter for screening, unspecified | CPT/HCPCS: 51728; 51741; 51784; 51797; 51798; 81003 ==

== ENCOUNTER 2025-06-24 06:50 | Day surgery (SDC) | payer BC, SELFPAY ==
--- OUTSIDE RECORDS SUMMARY | 2025-06-10 14:32 | XMS_ITS | Encounter Summary ---
Author Organization [facility] Address [address] [place] [address] Care Team Providers Care Furnace Feeder Name Role Phone Livier Lombardo MD Primary Care Provider [phone] Reason for Referral * Imaging (Routine) - Authorized Specialty Diagnoses / Procedures Referred By Contac t Referred To Contact Radiology Diagnoses Encounter for screening mammogram for breast cancer Procedures MG Mammo Digital Screening w Steve bilat [facility], Self Referral [facility] Referral ID Status Reason Start Date Expiration Date V isits Requested Visits Authorized [id number] Authorized 06/09/2025 06/09/2026 1 1 * Imaging (Routine) - Authorized Specialty Diagnoses / Procedures Referred By Contac t Referred To Contact Radiology Diagnoses Encounter for screening mammogram for breast cancer Procedures MG Mammo Digital Screening w Steve bilat [facility], Self Referral [facility] Referral ID Status Reason Start Date Expiration Date V isits Requested Visits Authorized [id number] Authorized 06/09/2025 06/09/2026 1 1 Reason for Visit * Imaging (Routine) - Authorized Specialty Diagnoses / Procedures Referred By Contac t Referred To Contact Radiology Diagnoses Encounter for screening mammogram for breast cancer Procedures MG Mammo Digital Screening w Steve bilat [facility], Self Referral [facility] Referral ID Status Reason Start Date Expiration Date V isits Requested Visits Authorized [id number] Authorized 06/09/2025 06/09/2026 1 1 Encounter Details Date Type Department Care Team (Latest Contact Info) Description 06/10/2025 2:32 PM EDT - 06/10/2025 11:59 PM EDT Hospital Encounter [facility] [address] [place] [phone] Encounter for screening mammogram for breast cancer Discharge Disposition: Home or Self Care Social History Tobacco Use Types Packs/Day Years Used Date Smoking Tobacco: Never Assessed Comments No Sex and Gender Information Value Date Recorded Sex Assigned at Not on file Legal Sex Female 5:36 PM EST Gender Identity Not on file Sexual Orientation Not on file documented as of this encounter Last Filed Vital Signs Vital Sign Reading Time Taken Comments Blood Pressure - - Pulse - - Temperature - - Respiratory Rate - - Oxygen Saturation - - Inhaled Oxygen Concentration - - Weight 85.7 kg (189 lb) 06/10/2025 2:41 PM EDT Height 154.9 cm (5' 1 ) 06/10/2025 2:41 PM EDT Body Mass Index 35.71 06/10/2025 2:41 PM EDT documented in this encounter Discharge Disposition Disposition Code Departure Means Destination Home or Self Care documented in this encounter Plan of Treatment Not on file documented as of this encounter Procedures Procedure Name Priority Date/Time Associated Diagnosis Comments MG MAMMO DIGITAL SCREENING W STEVE BILAT Routine 06/10/2025 2:53 PM EDT Encounter for screening mammogram for breast cancer documented in this encounter Results * MG Mammo Digital Screening w Steve bilat (06/10/2025 2:53 PM EDT) Anatomical Region Laterality Modality Breast Bilateral Mammography 06/10/2025 3:45 PM EDT Impressions 06/10/2025 4:47 PM EDT Benign. BI-RADS CATEGORY: 2 - BENIGN RECOMMENDATION: Screening bilateral mammogram is recommended in 1 year. Mammo Location: [facility], [address], [place], [id number], . -------- FINAL REPORT -------- Dictated By: Johann Dubon Dictated Date: 06/10/2025 15:45 ET Assigned Physician: Johann Dubon Reviewed and Electronically Signed By: Johann Dubon Signed Date: 06/10/2025 16:47 ET Workstation ID: [id number] Transcribed By: Self Edit Transcribed Date: 06/10/2025 15:46 ET Narrative 06/10/2025 4:47 PM EDT CLINICAL: 59 years old, Female, routine annual exam. COMPARISON: 04/04/2024. TECHNIQUE: Bilateral MLO and CC views were obtained digitally with 3-D mammogram (digital breast tomosynthesis). Computer-aided detection was utilized in evaluation of this exam (CAD). FINDINGS: Scattered benign calcifications in both breasts. Postbiopsy marker clip in the upper outer quadrant of the right breast. No suspicious mass or architectural distortion. No suspicious calcification. There has been no significant change from prior exam(s). BREAST DENSITY: B - There are scattered areas of fibroglandular density. Procedure Note Johann Dubon MD - 06/10/2025 CLINICAL: 59 years old, Female, routine annual exam. COMPARISON: 04/04/2024. TECHNIQUE: Bilateral MLO and CC views were obtained digitally with 3-Dmammogram (digital breast tomosynthesis). Computer-aided detection wasutilized in evaluation of this exam (CAD). FINDINGS: Scattered benign calcifications in both breasts. Postbiopsymarker clip in the upper outer quadrant of the right breast. No suspicious mass or architectural distortion. No suspiciouscalcification. There has been no significant change from prior exam(s). BREAST DENSITY: B - There are scattered areas of fibroglandular density. IMPRESSION: Benign. BI-RADS CATEGORY: 2 - BENIGN RECOMMENDATION: Screening bilateral mammogram is recommended in 1 year. Mammo Location: [facility], [address] [place] [address], [address], . -------- FINAL REPORT -------- Dictated By: Johann Dubon Dictated Date: 06/10/2025 15:45 ET Assigned Physician: Johann Dubon Reviewed and Electronically Signed By: Johann Dubon Signed Date: 06/10/2025 16:47 ET Workstation ID: [id number] Transcribed By: Self Edit Transcribed Date: 06/10/2025 15:46 ET us Self Referral [facility] IMG BI PROCEDURES Final Resul t documented in this encounter Visit Diagnoses Diagnosis Encounter for screening mammogram for breast cancer documented in this encounter Care Teams Furnace Feeder Relationship Specialty Start Date End Date Livier Lombardo MD [address] [place] [address] PCP - General 07/29/21 documented as of this encounter
--- OUTSIDE RECORDS SUMMARY | 2025-06-12 16:04 | XMS_ITS | Encounter Summary ---
Author Organization [employer] Address [address] [facility] 7t [place] [address] Care Team Providers Care Assistant Professor Of Theater Name Role Phone Karen Burden MD Primary Care Provider [phone] Roe Ambriz CNP Primary Care Provider [phone] Reason for Visit * Reason Onset Date Comments Appointment Request 01/16/2025 Encounter Details Date Type Department Care Team ([facility] st Contact Info) Description 01/16/2025 Telephone [facility] MEDICINE [address] [place] [address] Karen Burden MD [address] [place] [address] Appointment Request Social History Tobacco Use Types [...] EDT Tc from pt requesting to reschedule doctor's assistant appt. Please contact pt at [phone]. documented in this encounter Plan of Treatment Not on file documented as of this encounter Visit Diagnoses Not on filedocumented in this encounter Additional Health Concerns Assessment Noted Time PHQ-9 Depression Total Score: 12 024 9:18 AM EST documented as of this encounter Care Teams Assistant Professor Of Theater Relationship Specialty Start Date End Date Karen Burden MD [address] [place] [address] PCP - General Family Medicine 01/16/20 06/10/25 Roe Ambriz CNP [address] [place] [address] PCP - General Family Medicine 06/11/25 documented as of this encounter
--- OUTSIDE RECORDS SUMMARY | 2025-06-12 16:04 | XMS_ITS | Encounter Summary ---
Author Organization [employer] Address [address] [place] [address] Care Team Providers Care Band Booker Name Role Phone Karen Burden MD Primary Care Provider [phone] Roe Ambriz CNP Primary Care Provider [phone] Reason for Visit * Reason Comments Med Refill Encounter Details Date Type Department Care Team ([facility] st Contact Info) Description 11/25/2022 Refill [facility] CHC MED & PEDS [address] [place], [place] [phone] Karen Burden MD [address] [place] [address] Social History Tobacco Use Types Packs/Day Years [...] on filedocumented in this encounter Care Teams Band Booker Relationship Specialty Start Date End Date Karen Burden MD [address] [place] [address] PCP - General Family Medicine 01/16/20 06/10/25 Roe Ambriz CNP [address] [place] [address] PCP - General Family Medicine 06/11/25 documented as of this encounter
--- OUTSIDE RECORDS SUMMARY | 2025-06-12 16:04 | XMS_ITS | Encounter Summary ---
Author Organization [employer] Address [address] [facility] [address] [place] [address] Care Team Providers Care Student Recruiter Name Role Phone Roe Ambriz CNP Primary Care Provider [phone] Encounter Details Date Type Department Care Team (Late st Contact Info) Description 06/12/2025 Orders Only [facility] CHC MED & PEDS [address] [place], [place] [phone] Provider, MD Cecilia Social History Tobacco Use Types Packs/Day Years [...] Procedure Name Priority Date/Time Associated Diagnosis Comments HM MAMMOGRAPHY Routine 06/10/2025 9:30 AM EDT documented in this encounter Results * Hm Mammography (06/10/2025 9:30 AM EDT) Anatomical Region Laterality Modality Other Historical Provider HEALTH MAINTENANCE Final Result documented in this encounter Visit Diagnoses Not on filedocumented in this encounter Additional Health Concerns Assessment Noted Time PHQ-9 Depression Total Score: 12 024 9:18 AM EST documented as of this encounter Care Teams Student Recruiter Relationship Specialty Start Date End Date Roe Ambriz CNP [address] [place] [address] PCP - General Family Medicine 06/11/25 documented as of this encounter
--- OUTSIDE RECORDS SUMMARY | 2025-06-12 16:04 | XMS_ITS | Encounter Summary ---
Author Organization [employer] Address [address] [facility] 7[address] [place] [address] Care Team Providers Care Santa'S Helper Name Role Phone Karen Burden MD Primary Care Provider [phone] Roe Ambriz CNP Primary Care Provider [phone] Encounter Details Date Type Department Care Team ([facility] st Contact Info) Description 06/13/2023 Orders Only [facility]S [address] [place] [address] Catherine Centeno MD [address] [place] [address] Tongue irritation (Primary Dx) Social History Tobacco [...] Time PHQ-9 Depression Total Score: 4 02/02/20 11:44 AM EDT documented as of this encounter Care Teams Santa'S Helper Relationship Specialty Start Date End Date Karen Burden MD [address] [place] [id number] PCP - General Family Medicine 01/16/20 06/10/25 Roe Ambriz CNP [address] [place] [id number] PCP - General Family Medicine 06/11/25 documented as of this encounter
--- OUTSIDE RECORDS SUMMARY | 2025-06-12 16:04 | XMS_ITS | Clinical Summary ---
Author Organization [employer] Address [address] [facility] 7t [place] [address] Care Team Providers Care Sheet Finisher Name Role Phone Roe Ambriz CNP Primary Care Provider [phone] Allergies No known active allergies Medications famotidine [...] Encounters Date Type Department Care Team Description 06/12/2025 Orders Only [facility] MED & [facility]ED[facility] [address] [place], [place] [phone] Cecilia Byrnes MD 05/28/2025 Telephone [facility] [address] [place] [address] Karen Buredn MD Referral 05/19/2025 Telephone [facility] [address] [place], [place] [phone] Karen Burden MD Nurse Triage from Last 3 Months Immunizations Immunization Administration [...] CT Colonography 1966 Colonoscopy 1966 FIT 1966 HIV Screening 1966 Sigmoidoscopy 1966 Hepatitis C Screening 1984 Hepatitis B Vaccines (1 of 3 - 19+ 3-dose series) 1985 Zoster Vaccines (2 of 2) 07/18/2023 05/23/2023 FOBT 11/19/2024 11/20/2023 Depression Monitoring 12/17/2024 06/19/2024, 024 Influenza Vaccine (#1) 2025 , 07/12/2023, 05/13/2022, Additional history exists Alcohol/Substance Use Screening 12/16/2025 12/16/2024 Disability Screening 12/16/2025 12/16/2024 SDOH Screening 12/16/2025 12/16/2024 Tobacco Screening 12/16/2025 12/16/2024 Mammogram 06/10/2026 06/10/2025, 05/15, 06/10/2025 Colorectal Cancer Screening 11/19/2026 FIT DNA/Cologuard 11/19/2026 [...] Procedure Name Priority Date/Time Associated Diagnosis Comments MAMMOGRAPHY Routine 06/10/2025 9:30 AM EDT LAB COLOGUARD COLON CANCER SCREEN Routine 11/20/2023 3:06 PM EDT Encounter for screening for malignant neoplasm of colon LIPID PANEL, STANDARD Routine 11/02/2023 9:53 AM EDT Obesity (BMI 35.0-39.9 without comorbidity) from Last 3 Months or Most Recently Relevant to Health Maintenance Results * Mammography (06/10/2025 9:30 AM EDT) Anatomical Region Laterality Modality Other Historical Provider HEALTH MAINTENANCE Final Result * Cologuard?? colon cancer screening (11/20/2023 3:06 PM EDT) Cologuard Result Negative Negative 11/24/19 7:05 PM EDT [facility] (CLIA #:[id number]) Comment: NEGATIVE TEST RESULT. A negative Cologuard [...] (Eun Walker al, N Engl J Med 2014;370(14):8747-1301) The normal value (reference range) for this assay is negative. COLOGUARD RE-SCREENING RECOMMENDATION: Periodic colorectal cancer screening is an important part of preventive healthcare for asymptomatic individuals at average risk for colorectal cancer. Following a negative Cologuard result, the [employer] and U.S. Multi-Society Task Force screening guidelines recommend a Cologuard re-screening interval of 3 years. References: [employer] Guideline for Colorectal Cancer Screening: https://www.cancer.org/cancer/dgvmz-dxtxql-etzdcc/eypyorlaz-yjfgtjqzt-tzgqfva/ac s-rec ommendations.html.; Bruno DK, Kiana FELDER, Pretty VermaK, Colorectal Cancer Screening: Recommendations for Physicians and Patients from the U.S. Multi-Society Task Force on Colorectal Cancer Screening , Am J Gastroenterology 2017; 112:5273-1590. TEST DESCRIPTION: Composite algorithmic analysis of stool [...] Wright et al, N Engl J Med 2014;370(14):7903-7232.) Cologuard may produce a false negative or false positive result (no colorectal cancer or precancerous polyp present at colonoscopy follow up). A negative Cologuard test result does not guarantee the absence of CRC or advanced adenoma (pre-cancer). The current Cologuard screening interval is every 3 years. ([employer] Society and U.S. Multi-Society Task Force). Cologuard performance data in a 10,000 patient pivotal study using colonoscopy as the reference method can be accessed at the following location: www.[employer]/results. Additional description of the Cologuard test process, warnings and precautions can be found at www.[employer]eset. Stool specimen (specimen) 11/20/2023 3:06 PM EDT 11/21/2023 2:44 PM EDT Karen Burden MD LAB MOLECULAR DIAGNOSTICS ORDERA BLES Final Result [facility] (CLIA #:[id number]) [place] [address], * Lipid Panel, Standard (11/02/2023 9:53 AM EDT) Triglycerides 77 <150 mg/dL [facility] Comment:Desirable Triglyceri de: less than 150 mg/dLBorderline High Triglyceride 150-199 mg/dLHigh Triglyceride: 200-499 mg/dLVery High Triglyceride: greater than or equal to 5OO mg/dL Cholesterol 165 <200 mg/dL [facility] Comment:Desirable Cholestero l: less than 200 mg/dLBorderline High Cholesterol: 200-239 mg/dLHigh Cholesterol: greater than 239 mg/dL LDL Cholesterol Calculated 90 <100 mg/dL [facility] Comment:Desirable LDL: less than 100 mg/dLNear Optimal/Above Optimal LDL: 110- 129 mg/dLBorderline High LDL: 130-159 mg/dLHigh LDL: 160-189 mg/dLVery High LDL: greater than or equal to 190 mg/dL HDL Cholesterol 60 >40 mg/dL [facility] Comment:Desirable HDL: great er than 40 mg/dL Note: This HDL assay may give artificially low results in patients with liver disease. Blood Venous blood specimen / Unknown 11/02/2023 9:53 AM EDT 11/02/2023 2:45 PM EDT us Karen Burden MD LAB BLOOD ORDERABLES Final Resul t [facility] [address] [place], [place] [phone] from Last 3 Months or Most Recently Relevant to Health Maintenance Insurance [facility] HMO Care Teams Sheet Finisher Relationship Specialty Start Date End Date Roe Ambriz CNP [address] [place] [id number] PCP - General Family Medicine 06/11/25
--- OUTSIDE RECORDS SUMMARY | 2025-06-12 16:04 | XMS_ITS | Encounter Summary ---
Author Organization [employer] Address [address] [facility] 7[address] [place] [address] Care Team Providers Care Electronic Transaction Implementer Name Role Phone Karen Burden MD Primary Care Provider [phone] Roe Ambriz CNP Primary Care Provider [phone] Encounter Details Date Type Department Care Team (Late st Contact Info) Description 02/13/[address] [facility] PEDS [address] [place], [place] [phone] Karen Burden MD [address] [place] [address] Social History Tobacco Use Types Packs/Day Years [...] documented as of this encounter Care Teams Electronic Transaction Implementer Relationship Specialty Start Date End Date Karen Burden MD [address] [place] [id number] PCP - General Family Medicine 01/16/20 06/10/25 Roe Ambriz CNP [address] [place] [address] PCP - General Family Medicine 06/11/25 documented as of this encounter
--- OUTSIDE RECORDS SUMMARY | 2025-06-12 16:04 | XMS_ITS | Clinical Summary ---
Author Organization [facility] Address [address] [place] [address] Phone Care Team Providers Care Database Management Specialist Name Role Phone Livier Lombardo MD Primary Care Provider [phone] Encounters Date Type Department Care Team Description 06/10/2025 2:32 PM EDT - 06/10/2025 11:59 PM EDT Hospital [facility] [address] [address] Encounter for screening mammogram for breast cancer Discharge Disposition: Home or Self Care from Last 3 Months Family History Medical History Relation Name Comments Breast cancer Mother's Sister Relation Name Status Comments Mother's Sister Alive Social History Tobacco Use Types Packs/Day Years Used Date Smoking Tobacco: Never Assessed Comments No Sex and Gender Information Value Date Recorded Sex Assigned at Not on file Legal Sex Female 5:36 PM EST Gender Identity Not on file Sexual Orientation Not on file Obstetrics History Para Term AB IAB SAB Ectopic Multiple Livin g Live Births 3 Last Filed Vital Signs Vital Sign Reading [...] Mass Index 35.71 06/10/2025 2:41 PM EDT Plan of Treatment Health Maintenance Due Date Last Done Comments Hepatitis B Vaccines (1 of 3 - 19+ 3-dose series) 1985 Cervical Cancer Screening: Pap Smear 1987 HIV Screening 07/24/2022 Hepatitis C Screening 07/24/2022 Social Influencers of Health Screening 07/24/2022 Zoster Vaccines (2 of 2) 07/18/2023 05/23/2023 Depression Screening 08/14/2024 Influenza Vaccine (#1) 2025 , 07/12/2023, 05/13/2022, Additional history exists Colorectal Cancer Screening: FIT-DNA (Cologuard) 11/19/2026 11/20/2023 Breast Cancer Screening 06/10/2027 06/10/20, 04/04/2024, 02/10/2023, Additional history exists DTaP,Tdap,and Td Vaccines (2 - Td or Tdap) 01/10/2028 01/09/2018 Cholesterol Screening (Lipid Panel) 11/01/2028 11/02/2023 RSV Immunization Adult Patients (1 - 1-dose 75+ series) 2041 COVID-19 [...] Diagnosis Comments MG MAMMO DIGITAL SCREENING W BERT BILAT Routine 06/10/2025 2:53 PM EDT Encounter for screening mammogram for breast cancer from Last 3 Months Results * MG Mammo Digital Screening w Bert bilat (06/10/2025 2:53 PM EDT) Anatomical Region Laterality Modality Breast Bilateral Mammography 06/10/2025 3:45 PM EDT Impressions 06/10/2025 4:47 PM EDT Benign. BI-RADS CATEGORY: 2 - BENIGN RECOMMENDATION: Screening bilateral mammogram is recommended in 1 year. Mammo Location: [facility], [address] [place] [address], [id number], . -------- FINAL REPORT -------- Dictated By: Johann Dubon Dictated Date: 06/10/2025 15:45 ET Assigned Physician: Johann Dubon Reviewed and Electronically Signed By: Johann Dubon Signed Date: 06/10/2025 16:47 ET Workstation ID: [id number] Transcribed By: Self Edit Transcribed Date: 06/10/2025 [...] year. Mammo Location: [facility], [address] [place] [address], [id number], . -------- FINAL REPORT -------- Dictated By: Johann Dubon Dictated Date: 06/10/2025 15:45 ET Assigned Physician: Johann Dubon Reviewed and Electronically Signed By: Johann Dubon Signed Date: 06/10/2025 16:47 ET Workstation ID: [id number] Transcribed By: Self Edit Transcribed Date: 06/10/2025 15:46 ET us Self Referral Sppl IMG BI PROCEDURES Final Resul t from Last [address] [place] [address] Care Teams Database Management Specialist Relationship Specialty Start Date End Date Livier Lombardo MD [address] [place] [id number] PCP - General 07/29/21
--- NOTE | 2025-06-19 09:20 | HO.ANESPROP2 ---
Documented by User: Amelie Humphreys NP 06/19/25 09:21 HPI - Anesthesia Eval Consult details Narrative: 59yo F for Cystoscopy Bladder Botox Injection PMFSH Active Problems Active Problems: All Active Problems OAB (overactive bladder) (Acute) Mixed stress and urge urinary incontinence (Acute) Family History Family History Family/Other Family history- stomach cancer Surgical History Surgical History Hx of hysterectomy Hx of gastric bypass Social History Social History Patient Tobacco Use Status: Former Tobacco user Have you been hit, kicked, punched, or otherwise hurt by someone within the past year? If so, by whom?: No Are you DNR?: No Advance Directives: No Advance Directives Information Provided: Yes Meds Allergies Allergy/AdvReac Type Severity Reaction Status Date / Time No Known Allergies Allergy Verified 04/11/25 08:07 Home Medications ?Medication ?Instructions ?Recorded ?Confirmed ?Last Taken ?Type paroxetine HCl 10 mg tablet 10 mg PO DAILY 08/22/24 06/20/25 06/23/25 History Assessment and Plan Assessment Anesthesia Assessment: Chart Reviewed Documented by User: Rubia Sagastume MD 06/24/25 07:13 PMFSH Family History Family History Family/Other Family history- stomach cancer Family history of problems with anesthesia: No Surgical History Surgical History Hx of hysterectomy Hx of gastric bypass History of Problems with Anesthesia: No Social History Social History Patient Tobacco Use Status: Former Tobacco user Have you been hit, kicked, punched, or otherwise hurt by someone within the past year? If so, by whom?: No Are you DNR?: No Advance Directives: No Advance Directives Information Provided: Yes Meds Allergies Allergy/AdvReac Type Severity Reaction Status Date / Time No Known Allergies Allergy Verified 04/11/25 08:07 Home Medications ?Medication ?Instructions ?Recorded ?Confirmed ?Last Taken ?Type paroxetine HCl 10 mg tablet 10 mg PO DAILY 08/22/24 06/20/25 06/23/25 History Exam Airway Mallampati Class: II (implant bottom left) TM Dist: >3cm Neck ROM: Full (no pain, full range) Heart: rrr Lungs: cta Assessment and Plan Assessment Anesthesia Assessment: Anesthesia Plan Discussed Final Anesthetic Review Family History of Problems with Anesthesia: No History of Problems with Anesthesia: No NPO: Yes ASA Class: II Final Preanesthetic Review: No Changes in Pt Med Stat, Meds/Allgs Chart Reviewed and Consent Obtained/Reviewed Patient Risk: Low Procedure Risk: Low Anesthetic Plan Anesthetic Plan: GA Disposition: Standard PACU
[2025-06-20 08:56] VITALS: BMI 35.5
[2025-06-24 07:00] VITALS: BP 134/89; PULSE 79; RESP 18; TEMP 36.1; O2SAT 97; BMI 35.8
[2025-06-24] MEDS: Lactated Ringers 1,000 ML 100 ML IVCONT (07:16)
--- NOTE | 2025-06-24 07:17 | HO.ANESPROP2 ---
[facility] Active Problems Active Problems: All Active Problems OAB (overactive bladder) (Acute) Mixed stress and urge urinary incontinence (Acute) Family History Family History Family/Other Family history- stomach cancer Family history of problems with anesthesia: No Surgical History Surgical History Hx of hysterectomy Hx of gastric bypass History of Problems with Anesthesia: No Social History Social History Patient Tobacco Use Status: Former Tobacco user Have you been hit, kicked, punched, or otherwise hurt by someone within the past year? If so, by whom?: No Are you DNR?: No Advance Directives: No Advance Directives Information Provided: Yes Meds Allergies Allergy/AdvReac Type Severity Reaction Status Date / Time No Known Allergies Allergy Verified 04/11/25 08:07 Active Medications: Current Medications Botulinum Toxin Type A (Onabotulinumtoxina 100 Unit Vial) 100 unit INTRADETRU ONCE ONE Stop: 06/24/25 04:25 Fentanyl (Fentanyl Citrate/Pf 100 Mcg/2 Ml Vial) 50 mcg IVPUSH Q5M PRN PRN Reason: Pain, Moderate to Severe (Pain Scale 4-10) Stop: 06/24/25 13:11 Fentanyl (Fentanyl Citrate/Pf 100 Mcg/2 Ml Vial) 50 mcg IVPUSH Q5M PRN PRN Reason: Pain, Moderate to Severe (Pain Scale 4-10) Stop: 06/24/25 13:16 Lactated Ringer's (Lr) 1,000 mls @ 100 mls/hr IVCONT .Q10H RUPERTO Last Admin: 06/24/25 07:16 Dose: 100 mls/hr Naloxone HCl (Naloxone Hcl 0.4 Mg/Ml Vial) 0.04 mg IVPUSH Q5M PRN PRN Reason: Excessive sedation or RR < 8 Naloxone HCl (Naloxone Hcl 0.4 Mg/Ml Vial) 0.04 mg IVPUSH Q5M PRN PRN Reason: Excessive sedation or RR < 8 Oxycodone HCl (Oxycodone Hcl Immed Release 5 Mg Tablet) 5 mg PO ONCE PRN PRN Reason: Pain, Moderate(Pain Scale 4-6) if no IV Access Stop: 06/24/25 13:11 Oxycodone HCl (Oxycodone Hcl Immed Release 5 Mg Tablet) 5 mg PO ONCE PRN PRN Reason: Pain, Moderate(Pain Scale 4-6) if no IV Access Stop: 06/24/25 13:16 Promethazine HCl (Promethazine Hcl 25 Mg/Ml Vial) 6.25 mg IM ONCE PRN PRN Reason: Nausea and Vomiting Stop: 06/24/25 13:11 Promethazine HCl (Promethazine Hcl 25 Mg/Ml Vial) 6.25 mg IM ONCE PRN PRN Reason: Nausea and Vomiting Stop: 06/24/25 13:16 Home Medications ?Medication ?Instructions ?Recorded ?Confirmed ?Last Taken ?Type paroxetine HCl 10 mg tablet 10 mg PO DAILY 08/22/24 06/20/25 06/23/25 History Exam Height,Weight and Vital Signs: Height 5 ft 2 in Weight 88.9 kg Last Vital Signs Temp 97 F 06/24/25 07:00 Pulse 79 06/24/25 07:00 Resp 18 06/24/25 07:00 BP 134/89 06/24/25 07:00 Pulse Ox 97 06/24/25 07:00 O2 Del Method Room Air 06/24/25 07:00 Airway Mallampati Class: II TM Dist: >3cm Neck ROM: Full Heart: rrr Lungs: cta Assessment and Plan Assessment Anesthesia Assessment: Anesthesia Plan Discussed and Chart Reviewed Final Anesthetic Review Family History of Problems with Anesthesia: No History of Problems with Anesthesia: No NPO: Yes ASA Class: II Final Preanesthetic Review: No Changes in Pt Med Stat, Meds/Allgs Chart Reviewed and Consent Obtained/Reviewed Patient Risk: Low Procedure Risk: Low Anesthetic Plan Anesthetic Plan: MAC: Disposition: Standard PACU
--- NOTE | 2025-06-24 08:29 | MHC.SHP ---
Pre-Procedural Eval Section A - 24 Hr Update-Section A only Date of Service: 06/24/25 The patient is an INPATIENT: No The patient has been examined within 24 hours of the surgical procedure. The History & Physical has been completed within 30 days and I have reviewed it.: Yes Section B - Complete if H&P > 30 days Chief Complaint: Overactive bladder Allergies: Allergies Allergy/AdvReac Type Severity Reaction Status Date / Time No Known Allergies Allergy Verified 04/11/25 08:07 Plan Diagnosis/Plan: Unchanged I have reviewed the history and physical and performed a pertinent physical examination on my patient. No changes have occurred unless specified. Cystoscopy Bladder Botox injection 100 units. I have discussed risks to include hematuria, UTI, urinary retention, need to repeat procedure for sustained efficacy. Time Spent With Patient Time: Total time managing care of this patient today ____ minutes.
--- NOTE | 2025-06-24 08:30 | P.OP_ITS ---
Operative Note Operative Note Date of Service: 06/24/25 Narrative: PREOP DIAGNOSIS: Overactive bladder POSTOP DIAGNOSIS: Overactive bladder PROCEDURE: CYSTOSCOPY, BLADDER BOTOX INJECTION 100 UNITS SURGEON: Pa Mcgraw MD ANESTHESIA: General Details of procedure: The patient was brought into the operating room placed on the OR table in supine position. Antibiotics confirmed. General anesthesia was administered. The patient was repositioned into lithotomy position, prepped and draped in the usual sterile fashion. Time-out was done per protocol. A 22 fr cystoscope was placed transurethrally into the bladder. Urine was sent for cult ure. The right and left ureteral orifices were visualized. There were mild trabeculations noted. There were no suspicious bladder lesions seen. The Botox 100 units was mixed with 10 cc of normal saline and transurethral injections were placed into the posterior wall of the bladder. 0.5cc placed at each injection site. Injections were placed in a grid 5 across and 4 longitudinally. Injections were placed from the inferior to superior position. 2% lidocaine urojet was passed transurethrally into the bladder. The patient was brought out of anesthesia and taken to recovery in stable condition. Complications: None EBL: minimal (<5 mL) Drains: none
[2025-06-24 08:55] VITALS: BP 105/56; PULSE 69; RESP 15; TEMP 36.3; O2SAT 92
[2025-06-24 09:10] VITALS: BP 103/53; PULSE 72; RESP 15; O2SAT 97
[2025-06-24 09:25] VITALS: BP 120/62; PULSE 61; RESP 14; TEMP 36.7; O2SAT 98
== END 2025-06-24 10:22 | disposition home or self-care (01) ==
PROVIDERS: PCP Student in an Organized Health Care Education/Training Program; Visit Provider Urology
PROC: 3E0K8GC Introduction of Other Therapeutic Substance into Genitourinary Tract, Via Natural or Artificial Opening Endoscopic (ICD-10-PCS; CPT 52287; principal; 2025-06-24 08:40)
DX: N32.81 Overactive bladder (principal); N39.46 Mixed incontinence; N32.89 Other specified disorders of bladder; Z80.0 Family history of malignant neoplasm of digestive organs; Z90.710 Acquired absence of both cervix and uterus; Z98.84 Bariatric surgery status
CPT/HCPCS: 52287; 87086; J0585; J0690; J2003; J2250; J2405; J2704; J3010

== ENCOUNTER → 2025-06-24 06:50 | Outpatient (BNV) | payer BC, SELFPAY | PROVIDERS: PCP Student in an Organized Health Care Education/Training Program; Visit Provider Urology | DX: N32.81 Overactive bladder (principal) | CPT/HCPCS: 52287 ==

== ENCOUNTER → 2025-07-09 10:13 | Outpatient (BNVA) | payer BC, SELFPAY | PROVIDERS: PCP Student in an Organized Health Care Education/Training Program; Visit Provider Urology | DX: N32.81 Overactive bladder (principal) | CPT/HCPCS: 51798 ==

== ENCOUNTER → 2025-08-05 14:13 | Outpatient (BNVA) | payer BC, SELFPAY | PROVIDERS: PCP Student in an Organized Health Care Education/Training Program; Visit Provider Urology | DX: N39.46 Mixed incontinence (principal) | CPT/HCPCS: 51798 ==